=== PATIENT | male | born 1950 | race Caucasian/White ===

== ENCOUNTER → 2016-05-03 | Outpatient (CLI) | payer BC ==
[~2016-05-03] MED LIST: ACT30 PO; ACTUNK PO; ASPI81TA21 PO; CINN500C13 PO; CRS/10 PO; GLC500 PO; GLYB5TAB8 PO; LISI20TA3 PO; MCR5 PO; METF-384 PO; METF500T PO; SITA1TAB27 PO
[2016-05-03 11:18] LABS: HEMATOCRIT 40.9 % (42-52); MEAN CELL VOLUME 95.3 fL (80-100); MEAN CORPUSCULAR HGB CONC 35.7 g/dl (32-36); MEAN PLATELET VOLUME 10.5 fL (7.4-10.4); PLATELET COUNT 166 K/uL (130-400); RED BLOOD COUNT 4.29 M/uL (4.7-6.1); WHITE BLOOD COUNT 6.31 K/uL (4.8-10.8)
[2016-05-03 11:28] LABS: ALT/SGPT 32 U/L (12-78); AST/SGOT 13 U/L (15-37); BLOOD UREA NITROGEN 19 mg/dl (7-18); BUN/CREATININE RATIO 19.2 (10-20); CALCIUM 9.2 mg/dl (8.5-10.1); CARBON DIOXIDE 27 mmol/L (21-32); CHLORIDE 101 mmol/L (98-107); CREATININE 0.97 mg/dl (0.60-1.40); GLUCOSE 253 mg/dl (70-99); POTASSIUM 4.2 mmol/L (3.5-5.1); SODIUM 139 mmol/L (136-145)
[2016-05-03 11:37] LABS: ALB/GLOB RATIO 1.1 (0.9-2); ALKALINE PHOSPHATASE 55 U/L (45-117); CHOLESTEROL 144 mg/dl (0-200); CHOLESTEROL/HDL RATIO 3.2; HDL CHOLESTEROL 45 mg/dl; LDL CHOLESTEROL CALCULATED 76 mg/dl; TRIGLYCERIDES 116 mg/dl (0-150); VERY LOW DENSITY LIPOPROT CALC 23 mg/dl
[2016-05-03 14:01] LABS: ESTIMATED AVERAGE GLUCOSE 252 mg/dl; HA1C FLAG Normal (Normal)
== END | disposition home or self-care (01) ==
LOC: C.LABBC 07:36
PROVIDERS: ATTEND Internal Medicine
DX: E11.29 Type 2 diabetes mellitus with other diabetic kidney complication (principal)

== ENCOUNTER → 2016-09-01 | Outpatient (CLI) | payer BC ==
[~2016-09-01] MED LIST changes: +OXYC-57 PO
[2016-09-01 11:15] LABS: ALT/SGPT 29 U/L (12-78); AST/SGOT 13 U/L (15-37); BLOOD UREA NITROGEN 21 mg/dl (7-18); BUN/CREATININE RATIO 21.1 (10-20); CALCIUM 8.5 mg/dl (8.5-10.1); CARBON DIOXIDE 24 mmol/L (21-32); CHLORIDE 106 mmol/L (98-107); CREATININE 0.97 mg/dl (0.60-1.40); GLUCOSE 229 mg/dl (70-99); POTASSIUM 4.5 mmol/L (3.5-5.1); SODIUM 138 mmol/L (136-145)
[2016-09-01 11:23] LABS: RATIO 335.4 mcg/mg (0-30.0)
[2016-09-01 11:29] LABS: ALKALINE PHOSPHATASE 52 U/L (45-117); CHOLESTEROL 151 mg/dl (0-200); CHOLESTEROL/HDL RATIO 3.4; HDL CHOLESTEROL 44 mg/dl; LDL CHOLESTEROL CALCULATED 90 mg/dl; TRIGLYCERIDES 84 mg/dl (0-150); VERY LOW DENSITY LIPOPROT CALC 17 mg/dl
[2016-09-01 13:16] LABS: ESTIMATED AVERAGE GLUCOSE 246 mg/dl; HA1C FLAG Normal (Normal)
== END | disposition home or self-care (01) ==
LOC: C.LABBC 07:41
PROVIDERS: ATTEND Internal Medicine
DX: I10 Essential (primary) hypertension (principal); E78.00 Pure hypercholesterolemia, unspecified; R80.9 Proteinuria, unspecified; E11.65 Type 2 diabetes mellitus with hyperglycemia; D64.9 Anemia, unspecified

== ENCOUNTER → 2016-12-04 | Outpatient (CLI) | payer BC ==
[~2016-12-04] MED LIST changes: -OXYC-57 PO
[2016-12-04 17:58] LABS: BASO % 0.6 %; BASO ABS # 0.05 K/uL (0-0.2); COMPLETE YES; EOS % 2.4 %; HEMATOCRIT 41.1 % (42-52); IG% 0.4 %; LYMPH % 21.3 %; MEAN CELL VOLUME 99.3 fL (80-100); MEAN CORPUSCULAR HEMOGLOBIN 34.1 pg (25-34); MEAN CORPUSCULAR HGB CONC 34.3 g/dl (32-36); MEAN PLATELET VOLUME 10.2 fL (7.4-10.4); MONO % 7.7 %; NEUT % 67.6 %; PLATELET COUNT 189 K/uL (130-400); RED BLOOD COUNT 4.14 M/uL (4.7-6.1); URINE APPEARANCE CLEAR (CLEAR); URINE BILIRUBIN NEG (NEG); URINE COLOR YELLOW; URINE EPITHELIAL CELL AUTO 0-5 /lpf (0-5); URINE NITRITE NEG (NEG); UROBILINOGEN NEG (NEG); WHITE BLOOD COUNT 8.45 K/uL (4.8-10.8)
[2016-12-04 18:01] LABS: MANUAL MICROSCOPIC REQUIRED? NO; REVIEW REQ? NO
[2016-12-04 18:20] LABS: ALT/SGPT 29 U/L (12-78); BLOOD UREA NITROGEN 16 mg/dl (7-18); BUN/CREATININE RATIO 16.2 (10-20); CALCIUM 9.2 mg/dl (8.5-10.1); CARBON DIOXIDE 30 mmol/L (21-32); CHLORIDE 104 mmol/L (98-107); CREATININE 0.96 mg/dl (0.60-1.40); GLUCOSE 216 mg/dl (70-99); POTASSIUM 4.2 mmol/L (3.5-5.1); SODIUM 139 mmol/L (136-145)
[2016-12-04 18:23] LABS: ALKALINE PHOSPHATASE 50 U/L (45-117); AST/SGOT 14 U/L (15-37)
== END | disposition home or self-care (01) ==
LOC: C.LABBFT 11:56
PROVIDERS: ATTEND Nurse Practitioner
DX: R10.11 Right upper quadrant pain (principal)

== ENCOUNTER → 2016-12-07 | Outpatient (CLI) | payer BC ==
--- NOTE | 2016-12-07 07:36 | DIAGNOSTIC IMAGING REPORT ---
BILIARY ULTRASOUND CLINICAL HISTORY: RUQ PAIN COMPARISON STUDY: No previous studies for comparison. FINDINGS: The liver is of slightly increased echogenicity. This may indicate hepatic steatosis. No focal hepatic masses are visualized. There is no ductal dilatation. The common bile duct measures 3 mm. No gallstones are evident. Dependent echoes within the gallbladder are likely artifactual. There is no right-sided hydronephrosis. There is 18 mm right renal cyst. The pancreas appears thickened for age. No focal masses are evident. IMPRESSION: 1. No gallstones identified. No evidence of ductal dilatation 2. Increased hepatic echogenicity, nonspecific finding which may indicate hepatic steatosis 3. Possible pancreatic thickening/edema. Electronically signed by: Ron Drummond M.D. 12/07/2016 7:35 AM Dictated Date/Time: 12/07/2016 7:32 AM
== END | disposition home or self-care (01) ==
LOC: C.ULTR 06:31
PROVIDERS: ATTEND Internal Medicine
DX: R10.11 Right upper quadrant pain (principal)

== ENCOUNTER → 2016-12-14 | Outpatient (CLI) | payer BC ==
[~2016-12-14] MED LIST changes: +SINCALIDE INJ 1.8 MCG in SODIUM CHLORIDE 0.9% 100ML 100 ML IV ONE
--- NOTE | 2016-12-14 13:12 | DIAGNOSTIC IMAGING REPORT ---
NUCLEAR MEDICINE HEPATOBILIARY SCAN WITH EJECTION FRACTION ANALYSIS CLINICAL HISTORY: Right upper quadrant abdominal pain COMPARISON STUDY: Biliary ultrasound dated 12/07/2016 FINDINGS: The patient was injected with 4.8 mCi of technetium 99m Choletec. Sequential anterior imaging was performed. Hepatic excretion was unremarkable in appearance. There was normal passage of activity into small bowel. Gallbladder was first visualized on the 15 minute image. At 1 hour, the patient was administered 1.8 mcg of sincalide utilizing a 30 minute intravenous infusion. The gallbladder ejection fraction was abnormal measuring 13%. IMPRESSION: 1. No evidence of cystic duct obstruction 2. Abnormal gallbladder ejection fraction of 13% Electronically signed by: Ron Drummond M.D. 12/14/2016 1:11 PM Dictated Date/Time: 12/14/2016 1:03 PM
== END | disposition home or self-care (01) ==
LOC: C.NUCL 10:19
PROVIDERS: ATTEND Nurse Practitioner
DX: R10.11 Right upper quadrant pain (principal)

== ENCOUNTER → 2017-01-04 | Outpatient (CLI) | payer BC ==
[~2017-01-04] MED LIST changes: -ACTUNK PO; -GLC500 PO; -MCR5 PO; -SINCALIDE INJ 1.8 MCG in SODIUM CHLORIDE 0.9% 100ML 100 ML IV ONE
--- NOTE | 2017-01-04 16:06 | ECHOCARDIOGRAM REPORT ---
*NOTICE TO RECEIVING [employer] This information is strictly Confidential and protected under [place] law. [place] law prohibits you from making any further disclosure of this information unless further disclosure is expressly permitted by the written consent of the person to whom it pertains or is authorized by law. A general authorization for the release of medical or other information is not sufficient for this purpose. Hospital accepts no responsibility if the information is made available to any other person, INCLUDING THE PATIENT. Interpretation Summary * Name: BO OWUSU Study Date: 01/04/2017 12:52 PM BP: 141/63 mmHg * Patient Location: [facility] HR: 77 * : 1950 (M/d/yyyy) Gender: Male Height: 69 in * Age: 66 yrs Ethnicity: [place] Weight: 200 lb * Ordering Physician: Siobhan Collazo * Referring Physician: Siobhan Collazo * Performed By: Leigh Schuster RDCS * * Reason For Study: HEART MURMUR * BSA: 2.1 m2 * -- Conclusions -- * 1. Normal left ventricular size and systolic function. EF 65-70%. No regional wall motion abnormalities. Moderate concentric left ventricular hypertrophy. Type 1 diastolic dysfunction. * 2. Mild valvular aortic stenosis. * 3. Mild aortic regurgitation. * 4. Normal estimated right ventricular systolic pressure; 24mmHg. * 5. No prior study available for comparison. Procedure Details * A complete two-dimensional transthoracic echocardiogram was performed (2D, M-mode, Doppler and color flow Doppler). Left Ventricle * Normal left ventricular size and systolic function. EF 65-70%. No regional wall motion abnormalities. Moderate concentric left ventricular hypertrophy. Type 1 diastolic dysfunction. Right Ventricle * The right ventricle is normal in size and function. * The right ventricular systolic function is normal as assessed by tricuspid annular plane systolic excursion (TAPSE) (normal >1.5 cm). Atria * The left atrial size is normal. * Right atrial size is normal. * There is no evidence of atrial septal defect, but resolution does not allow assessment for a patent foramen ovale. Mitral Valve * The mitral valve is grossly normal. * There is no mitral valve stenosis. * Significant mitral regurgitation is absent. Tricuspid Valve * The tricuspid valve is not well visualized, but is grossly normal. * There is no tricuspid stenosis. * There is trace tricuspid regurgitation. Aortic Valve * The aortic valve is trileaflet. * Mild valvular aortic stenosis. * Mild aortic regurgitation. Pulmonic Valve * The pulmonary valve is inadequately visualized, but the Doppler data is adequate for interpretation. * There is no pulmonic valvular stenosis. * Trace pulmonic valvular regurgitation. Great Vessels * The aortic root is normal size. * Ascending aorta of normal dimension Pericardium/Pleural * There is no pericardial effusion. Great Vessels * Normal pulmonary venous flow pattern. MMode 2D Measurements and Calculations IVSd 1.5 cm IVSs 2.2 cm LVIDd 4.4 cm LVIDs 2.6 cm LVPWd 1.4 cm LVPWs 1.9 cm IVS/LVPW 1.1 FS 40.7 % EDV(Teich) 88.6 ml ESV(Teich) 25.1 ml EF(Teich) 71.7 % EDV(cubed) 86.3 ml ESV(cubed) 18.0 ml EF(cubed) 79.1 % % IVS thick 44.3 % % LVPW thick 38.3 % LV mass(C)d 249.5 grams LV mass(C)dI 120.8 grams/m\S\2 LV mass(C)s 232.1 grams LV mass(C)sI 112.4 grams/m\S\2 SV(Teich) 63.5 ml SI(Teich) 30.7 ml/m\S\2 SV(cubed) 68.3 ml SI(cubed) 33.1 ml/m\S\2 Ao root diam 3.5 cm Ao root area 9.5 cm\S\2 LA dimension 4.5 cm asc Aorta Diam 3.0 cm LA/Ao 1.3 LVOT diam 2.1 cm LVOT area 3.5 cm\S\2 LVAd ap4 28.6 cm\S\2 LVLd ap4 7.8 cm EDV(MOD-sp4) 88.7 ml EDV(sp4-el) 89.0 ml LVAs ap4 15.2 cm\S\2 LVLs ap4 6.8 cm ESV(MOD-sp4) 34.2 ml ESV(sp4-el) 29.1 ml EF(MOD-sp4) 61.5 % EF(sp4-el) 67.3 % LVAd ap2 21.5 cm\S\2 LVLd ap2 7.6 cm EDV(MOD-sp2) 50.0 ml EDV(sp2-el) 51.6 ml LVAs ap2 11.1 cm\S\2 LVLs ap2 6.1 cm ESV(MOD-sp2) 18.2 ml ESV(sp2-el) 17.2 ml EF(MOD-sp2) 63.5 % EF(sp2-el) 66.7 % LVLd %diff -3.13 % EDV(MOD-bp) 66.8 ml LVLs %diff -10.80 % ESV(MOD-bp) 26.0 ml EF(MOD-bp) 61.0 % SV(MOD-sp4) 54.5 ml SI(MOD-sp4) 26.4 ml/m\S\2 SV(MOD-sp2) 31.7 ml SI(MOD-sp2) 15.4 ml/m\S\2 SV(MOD-bp) 40.8 ml SI(MOD-bp) 19.8 ml/m\S\2 SV(sp4-el) 59.9 ml SI(sp4-el) 29.0 ml/m\S\2 SV(sp2-el) 34.4 ml SI(sp2-el) 16.6 ml/m\S\2 Doppler Measurements and Calculations MV E max janee 64.0 cm/sec MV A max janee 99.0 cm/sec MV E/A 0.65 MV dec time 0.27 sec Ao V2 max 249.8 cm/sec Ao max PG 25.0 mmHg Ao max PG (full) 20.2 mmHg Ao V2 mean 172.7 cm/sec Ao mean PG 13.1 mmHg Ao mean PG (full) 10.0 mmHg Ao V2 VTI 45.6 cm TERESO(I,A) 1.8 cm\S\2 TERESO(I,D) 1.8 cm\S\2 TERESO(V,A) 1.5 cm\S\2 TERESO(V,D) 1.5 cm\S\2 AI max janee 354.2 cm/sec AI max PG 50.2 mmHg AI dec slope 164.4 cm/sec\S\2 AI P1/2t 630.9 msec LV V1 max PG 4.7 mmHg LV V1 mean PG 3.1 mmHg LV V1 max 108.7 cm/sec LV V1 mean 84.6 cm/sec LV V1 VTI 23.2 cm SV(Ao) 432.6 ml SI(Ao) 209.4 ml/m\S\2 SV(LVOT) 80.9 ml SI(LVOT) 39.2 ml/m\S\2 TR max janee 226.7 cm/sec RVSP(TR) 23.6 mmHg RAP systole 3.0 mmHg
== END | disposition home or self-care (01) ==
LOC: C.CPL 12:13
PROVIDERS: ATTEND Physician Assistant Medical
DX: R01.1 Cardiac murmur, unspecified (principal); I51.7 Cardiomegaly

== ENCOUNTER 2017-01-28 05:18 | Day surgery (SDC) | payer BC ==
[2016-12-27 08:08] VITALS: BMI 29.0
--- NOTE | 2016-12-27 08:36 | PAT Medication Instructions ---
Service Date Dec 27, 2016. Current Home Medication List Aspirin Enteric Coated (Ecotrin Or Generic), 81 MG PO QAM Cinnamon (Cinnamon Extract), 1 CAP PO QAM Glyburide (Micronase), 10 MG PO BID Lisinopril (Prinivil), 20 MG PO QAM Metformin Hcl (Glucophage), 500 MG PO DAILY @ NOON Metformin Hcl (Glucophage), 1,000 MG PO BID Pioglitazone (Actos), 45 MG PO NOON Rosuvastatin Calcium (Crestor), 10 MG PO QPM Sitagliptin (Januvia), 100 MG PO QAM Medication Instructions For Your Scheduled Surgery - Held per surgeon's instructions: Aspirin Enteric Coated (Ecotrin Or Generic), 81 MG PO QAM Cinnamon (Cinnamon Extract), 1 CAP PO QAM - Hold the following medications 48 hours prior to surgery: Metformin Hcl (Glucophage), 500 MG PO DAILY @ NOON Metformin Hcl (Glucophage), 1,000 MG PO BID - Hold the following medications the morning of surgery: Pioglitazone (Actos), 45 MG PO NOON Sitagliptin (Januvia), 100 MG PO QAM Lisinopril (Prinivil), 20 MG PO QAM Glyburide (Micronase), 10 MG PO BID - Take the following medications as scheduled the night before surgery: Glyburide (Micronase), 10 MG PO BID Rosuvastatin Calcium (Crestor), 10 MG PO QPM Nothing to eat or drink after midnight If you have any questions please call us at [phone] or [phone] or [phone]
[~2017-01-28] VITALS: Ht 175.3 cm; Wt 90.8 kg
[2017-01-28 05:45] VITALS: BP 159/82; PULSE 86; TEMP 36.6; O2SAT 98; Ht 175.3 cm; Wt 90.8 kg
[2017-01-28] MEDS ORDERED: LACTATED RINGER'S 1000ML 1,000 ML IV SCH (06:00)
[2017-01-28] MEDS ORDERED: CEFOXITIN IV 2,000 MG in DEXTROSE 5% 50ML 50 ML IV SCH (06:00)
[2017-01-28] MEDS ORDERED: PROMETHAZINE HCL INJ 12.5 MG in SODIUM CHLORIDE 0.9% 50ML 50 ML IV PRN (06:30)
[2017-01-28] MEDS ORDERED: HYDROmorphone INJ 1 MG/ML SYR IV PRN (06:30)
[2017-01-28] MEDS ORDERED: EpHEDrine SULFATE INJ 50 MG/ML AMP IV PRN (06:30)
[2017-01-28] MEDS ORDERED: ONDANSETRON INJ 2 MG/ML 2 ML VIAL IV PRN ×2 (06:30→08:30)
[2017-01-28] MEDS ORDERED: FENTANYL CITRATE INJ 50 MCG/1 ML 2 ML VIAL IV PRN (06:30)
[2017-01-28] MEDS ORDERED: PHENYLEPHRINE 100MCG/ML 5ML SYR IV PRN (06:30)
[2017-01-28] MEDS ORDERED: ATROPINE SULFATE 0.1 MG/ML 5ML SYR IV PRN (06:30)
[2017-01-28] MEDS ORDERED: MIDAZOLAM HCL 1 MG/ML 2ML VIAL ONE (06:42)
[2017-01-28] MEDS ORDERED: PROPOFOL IV EMULSION 10 MG/ML 20 ML VIAL IV ONE (06:42)
[2017-01-28] MEDS ORDERED: DEXAMETHASONE SOD INJ 4 MG/ML VIAL ONE (06:42)
[2017-01-28] MEDS ORDERED: ONDANSETRON INJ 2 MG/ML 2 ML VIAL ONE (06:42)
[2017-01-28] MEDS ORDERED: GLYCOPYRROLATE INJ 0.2 MG/ML VIAL ONE (06:42)
[2017-01-28] MEDS ORDERED: FENTANYL CITRATE INJ 50 MCG/1 ML 2 ML VIAL ONE (06:42)
[2017-01-28] MEDS ORDERED: NEOSTIGMINE METHYLSULFATE 5 MG/5 ML SYR ONE (06:42)
[2017-01-28] MEDS ORDERED: LIDOCAINE HCL 2% 2 ML VIAL (20MG/ML) ONE (06:42)
[2017-01-28] MEDS ORDERED: BUPIVACAINE 0.5 % 5 MG/1 ML MPF 30ML VIAL ONE (06:48)
[2017-01-28] MEDS ORDERED: SODIUM CHLORIDE 0.9% PF 50 ML VIAL ONE (06:48)
--- NOTE | 2017-01-28 07:10 | History and Physical ---
History & Physical Date Jan 28, 2017. Chief Complaint biliary dyskinesia History of Present Illness 66-year-old male referred for evaluation of biliary dyskinesia. He has been having 1-2 months of chronic right upper quadrant pain. He does notice some indigestion and stomach cramping after certain meals. The pain has not been worsened after meals. He denies any nausea or vomiting. In the past he would occasionally notes some indigestion after fatty meals, but no similar symptoms to what he is experiencing now. He had a right upper quadrant ultrasound that showed no evidence of cholelithiasis. He had a HIDA scan that showed normal filling of the gallbladder with no evidence of cholecystitis, but a gallbladder ejection fraction of 13% consistent with biliary dyskinesia. He denies any worsening or replication of his symptoms during the exam. 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 He also smokes 4-5 cigarettes per day. He had a stress test 3 months ago that appeared to be negative per his report. Past Medical/Surgical History Review of Systems Complete-ROS GenSurg: YfdtvMxwvbms7Uusls Constitutional: negative. HbufcFrdeuvo7Sip AqfdeKnjsmwp4Qolfc Eyes: negative. IqrmxBrntzei8Mfm DfmdhOsfcnwd1Joibk Neurological: negative. XlixjXeecnjm2Ijw OzaxjWoafxya8Twjro Endocrine: negative. UdglpYmnvhkz4Bga RcupxNtaygcn7Oeqkc Cardiovascular: negative. ImduySzmtlss8Dal IzhjqUxvqsjl90Bqvhg Respiratory: negative. BhrdxHalnhom79Pae ZwrmuRgdzbgz82Aliln Gastrointestinal: negative. FjaasBuujuvp13Yjo GfxsdPwlkqbs91Hhfzn Integumentary: negative. UtswnSgaxlnk08Bau TqzroUscwlam98Jrsqu Musculoskeletal: negative. LjyrpBemgheq25Bld ZcjafFnoahbm4Ipxvx Hematologic/Lymphatic: negative. XvxyfJsqmvvj8Mep SlcqdXcnoduc7Mqyip ENT: negative. YyjjbOtoxmsp8Bgo LfzkhNqffina0Zuqva Psychiatric: negative. IaheaOkvqlel7Tpm EbnvlMllnfid73Fdsah Genitourinary: negative. XwrkmVwvdfxc88Voq FrgflSonokcd27Ewapr LwcykXbzyosy95Glk Pjieglip-ZPEWetVncgFBDYfolce6ss-87g0XJTPpeHepfZKNVbqcaa7dz-70p8-60f9-x953- f2008bi04p66JezzHpn Active Problems 1. Abnormal findings on diagnostic imaging of musculoskeletal system (R93.7) 2. Anemia (D64.9) 3. Biliary colic (K80.50) 4. Chest pain (R07.9) 5. Continuous right upper quadrant pain (R10.11) 6. Dermatophytosis (B35.9) 7. Diabetes mellitus type 2, uncontrolled (E11.65) 8. Diabetes mellitus with renal manifestations, uncontrolled (E11.29,E11.65) 9. Encounter for screening for malignant neoplasm of prostate (Z12.5) 10. Hypercholesterolemia (E78.00) 11. Hypertension (I10) 12. Joint pain in the shoulder/clavicle region (M25.519) 13. Lower back pain (M54.5) Left sided with radicular symptoms. 14. 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 Proteinuria (R80.9) 16. Thyroid disorder (E07.9) 17. Type 2 diabetes mellitus (E11.9) Surgical History SurgicalHistory_10_twCiteListControlStart 1. History of Complete Colonoscopy 01/2007, normal except for tics, recheck in 10 years 2. History of Rotator Cuff Repair 03/2013, laproscopic, dr dorado Family History 1. Family history of Coronary Artery Disease 2. Family history of cardiac disorder (Z82.49) 3. Family history of hypertension (Z82.49) 4. Family history of Type 2 Diabetes Mellitus 5. Family history of cardiac disorder (Z82.49) 6. Family history of hypertension (Z82.49) 7. Family history of Stroke Syndrome 8. Family history of Colon Cancer cousin on paternal side Social History SocialHistory_ Alcohol Use (History) Former smoker (Z87.891) one cigarette per day Marital History - Currently Occupation: Smokeless tobacco use (Z72.0) Allergies Coded Allergies: No Known Allergies (Unverified , 01/28/17) Home Medications Scheduled Aspirin Enteric Coated (Ecotrin Or Generic), 81 MG PO QAM Cinnamon (Cinnamon Extract), 1 CAP PO QAM Glyburide (Micronase), 10 MG PO BID Lisinopril (Prinivil), 20 MG PO QAM Metformin Hcl (Glucophage), 500 MG PO DAILY @ NOON Metformin Hcl (Glucophage), 1,000 MG PO BID Pioglitazone (Actos), 45 MG PO NOON Rosuvastatin Calcium (Crestor), 10 MG PO QPM Sitagliptin (Januvia), 100 MG PO QAM Physical Examination Skin: warm/dry, no rash Eyes: normal inspection, EOMI, sclerae normal ENT: normal ENT inspection, pharynx normal Head: normocephalic, atraumatic Neck: supple, no adenopathy, trachea midline Respiratory/Chest: lungs clear, normal breath sounds, no respiratory distress Cardiovascular: regular rate, rhythm, no edema, no murmur Abdomen / GI: normal bowel sounds, non tender, + pertinent finding (reducible umbilical hernia) Back: normal inspection Extremities: normal inspection, normal range of motion Neurologic/Psych: no motor/sensory deficits, alert, normal reflexes, oriented x 3 Diagnosis biliary dyskinesia, umbilical hernia Plan of Treatment 66-year-old male with biliary dyskinesia and likely chronic cholecystitis. He also has an umbilical hernia which we will repair during the procedure. Plan for laparoscopic cholecystectomy with possible intraoperative cholangiogram, possible umbilical hernia repair. The risks of the procedure were discussed to include but are not limited to bleeding, infection, damage to common bile duct, retained stone, bile leak, conversion to open, damage to surrounding structures , need for future more extensive surgery or procedures, failure to treat symptoms, and the risks of anesthesia. He is at increased risk for infection and wound complications as well as anesthesia risk given his smoking, and poorly controlled diabetes. We will get preoperative cardiac risk assessment by his primary care provider prior to the procedure, though it is reassuring that he had normal stress test 3 months ago per his report. The diagnosis, treatment options, details of surgery, recovery, and plan of care were discussed, all questions were answered and the patient agreed to proceed with surgery as planned.
[2017-01-28] MEDS ORDERED: ROCURONIUM BROMIDE 10 MG/ML 5 ML VIAL IV ONE (07:48)
[2017-01-28] MEDS ORDERED: KETOROLAC TROMETHAMINE 30 MG/ML VIAL ONE (08:03)
--- NOTE | 2017-01-28 08:12 | [facility] Post Operative Brief Note ---
Immediate Operative Summary Operative Date Jan 28, 2017. Pre-Operative Diagnosis biliary dyskinesia, chronic cholecystitis Post-Operative Diagnosis biliary dyskinesia, chronic cholecystitis Procedure(s) Performed Laparoscopic Cholecystectomy, Umbilical Hernia Repair Surgeon Dr. Schuster Engineer Of System Development Surgeon(s) LUCINA Barrett PA-C Estimated Blood Loss 3 cc Findings Window of safety obtained, cystic duct and artery doubly clipped and divided. Good hemostasis. Umbilical hernia defect repaired primarily with interrupted 0 Nurolon sutures. Specimens A: Gall bladder and contents Drains none Anesthesia GETA Complication(s) None Disposition Recovery Room / PACU
[2017-01-28] MEDS ORDERED: OXYC-57 PO (08:15)
[2017-01-28] MEDS ORDERED: SODIUM CHLORIDE 0.9% 1000ML 1,000 ML IV SCH (08:20)
--- NOTE | 2017-01-28 08:20 | [facility] Operative Report ---
Operative Report Operative Date Jan 28, 2017. Pre-Operative Diagnosis biliary dyskinesia, chronic cholecystitis Post-Operative Diagnosis biliary dyskinesia, reducible umbilical hernia Procedure(s) Performed Laparoscopic cholecystectomy, umbilical hernia repair, Surgeon Dr. Schuster Gum Cook Surgeon(s) LUCINA Barrett PA-C Estimated Blood Loss 3 cc Findings Window of safety obtained, cystic duct and artery doubly clipped and divided. Good hemostasis. Umbilical hernia defect repaired primarily with interrupted 0 Nurolon sutures. Specimens A: Gall bladder and contents Drains none Anesthesia GETA Complication(s) None Disposition Recovery Room / PACU Indications 66-year-old male with symptomatically biliary dyskinesia and incidental umbilical hernia, plan for laps, cholecystectomy with possible intraoperative cholangiogram and possible umbilical hernia repair. The risks of the procedure were discussed, all questions were answered, and the patient agreed to proceed with surgery as planned. Description of Procedure The patient was properly identified, consented, and taken to the operating room where he was placed in the supine position. General endotracheal anesthesia was induced. SCDs and a safety belt were placed. Preoperative antibiotics were administered. The patient's abdomen was prepped and draped in the standard sterile fashion. A surgical timeout was performed and all parties were in agreement that this was the correct patient and procedure to be performed and we continued as planned. A curvilinear, infraumbilical incision was made with electrocautery and deepened down to the fascia with blunt dissection. The umbilical stalk was circumferentially dissected with a Tonie, and divided below the level of the skin. A 1 cm fascial defect was encountered. The hernia was reduced. The fascia anteriorly and posteriorly was cleared of investing tissue for several centimeters. The umbilical hernia defect was then used to access the abdomen. Stay sutures of 0 Vicryl placed and the Looney trocar was inserted. The abdomen was insufflated with carbon dioxide which the patient tolerated without incident. The laparoscope was inserted and no damage from initial trocar placement was noted, no gross abnormalities were noted within the 4 quadrants of the abdomen. 5 mm ports were then placed in the subxiphoid position in the midline and 2 in the right subcostal position. The patient was placed in reverse Trendelenburg position and rotated towards the left. The dome of the gallbladder was retracted towards the left upper quadrant and the infundibulum was retracted toward the right lower quadrant revealing Calot' s triangle. Peritoneal attachments were taken down with electrocautery and blunt dissection. The cystic duct and artery were circumferentially dissected. A window of safety was obtained showing the cystic duct entering the gallbladder with no aberrant structures noted. The cystic duct and artery were doubly clipped and divided. The gallbladder was then lifted off the gallbladder fossa with electrocautery. The gallbladder was placed in an Endo Catch bag and removed through the umbilical port site. The right upper quadrant was irrigated and hemostasis was found to be good. 5 mm trochars were removed under direct visualization and the abdomen was allowed to collapse. The hernia defect was closed primarily with interrupted 0 Nurolon sutures. The wound was irrigated and hemostasis confirmed. The umbilicus was tacked down to the fascia with 3-0 Vicryl sutures. Local anesthetic in the form of 0.5% Marcaine was injected in the fascia and along the skin incision. The skin of all ports was closed with 4-0 Monocryl subcuticular sutures. Dermabond was placed over the wounds. The patient was extubated in the operating room and taken to the PACU where he recovered without apparent incident. All sponge, instrument and needle counts were correct at the conclusion of the procedure. The patient tolerated the procedure well. I attest to the content of the Intraoperative Record and any orders documented therein. Any exceptions are noted below.
--- NOTE | 2017-01-28 08:20 | Discharge Instructions ---
Discharge Instructions Date of Service Jan 28, 2017. Visit Reason for Visit: Chronic Cholecystitis, Diabetes Mellitus Non-Insul Discharge Discharge Diagnosis / Problem: Chronic Cholecystitis, Diabetes Mellitus Non- Insulin Discharge Goals Goal(s): Decrease discomfort, Improve function Activity Recommendations Activity Limitations: as noted below Lifting Limitations: no more than 10 pounds Exercise/Sports Limitations: until after follow-up appointment Shower/Bathe: tomorrow Driving or Machine Use: resume 1 day after discharge (Do not drive while using narcotic pain medication) No heavy lifting or strenuous exercise until after follow-up appointment Anesthesia . Post Anesthesia Instructions: If you have had General Anesthesia or IV Sedation: * Do not drive today. * Resume driving when surgeon permits. * Do not make important decisions or sign legal documents today. * Call surgeon for: 1. Temperature elevations greater than 101 degrees F. 2. Uncontrollable pain. 3. Excessive bleeding. 4. Persistent nausea and vomiting. 5. Medication intolerance (nausea, vomiting or rash). * For nausea and vomiting use only clear liquids such as: tea, soda, bouillon until nausea subsides, then gradually increase diet as tolerated. * If you have any concerns or questions, call your surgeon's office. If physician is unavailable and it is an emergency, call 911 or go to the nearest emergency room. . Instructions / Follow-Up Instructions / Follow-Up Please follow-up with Dr. Schuster in the office in 2 weeks. Please call to schedule an appointment if you have not done so already. [facility]. [address] [place] [address]. Diet Recommendations Recommended Home Diet: resume previous diet (Gradually increase as tolerated.) Procedures Procedures Performed: Laparoscopic Cholecystectomy, Umbilical Hernia Repair Pending Studies Studies pending at discharge: yes List of pending studies: Pathology Medical Emergencies . Who to Call and When: Medical Emergencies: If at any time you feel your situation is an emergency, please call 911 immediately. . Non-Emergent Contact Non-Emergency issues call your: Primary Care Provider, Surgeon Call Non-Emergent contact if: you have a fever, temperature is above 101.5, your pain is not controlled, your pain is worsening, wound has increased drainage, wound has increased redness . . "Provider Documentation" section prepared by Ag Thornton. . [place] Drug Monitoring Program Search Results: patient reviewed within database (Patient identified, No prescriptions identified.)
[2017-01-28] MEDS ORDERED: INSULIN HUMAN REGULAR PER UNIT 6 UNITS in SYRINGE 0 ML SC STA (08:26)
[2017-01-28] MEDS ORDERED: NovoLIN-R INSULIN PER UNIT CHARGE ONE (08:27)
[2017-01-28] MEDS ORDERED: OXYCODONE/ACETAMINOPHEN 5-325 TAB PO PRN ×2 (08:30)
--- NOTE | 2017-01-28 08:59 | Anesthesiology Progress Note ---
Anesthesia Post Op Note Date & Time Jan 28, 2017 at 08:58 Vital Signs Pain Intensity: 0 Vital Signs Past 12 Hours Date Time Temp Pulse Resp B/P (MAP) Pulse Ox O2 Delivery O2 Flow Rate FiO2 01/28/17 08:45 61 12 153/65 94 Room Air 01/28/17 08:35 60 12 171/79 95 Room Air 01/28/17 08:25 66 13 177/87 100 Oxymask 10 01/28/17 08:18 36.2 70 16 192/95 99 Oxymask 10 01/28/17 05:45 36.6 86 20 159/82 (107) 98 Room Air Notes Mental Status: alert / awake / arousable, participated in evaluation Pt Amnestic to Procedure: Yes Nausea / Vomiting: adequately controlled Pain: adequately controlled Airway Patency, RR, SpO2: stable & adequate BP & HR: stable & adequate Hydration State: stable & adequate Anesthetic Complications: no major complications apparent Doing well. VSS. BG came down after regular insulin. Ready for d/c
[2017-01-28 09:05] VITALS: BP 176/83; PULSE 64; TEMP 36.7; O2SAT 93
[2017-01-28 09:35] VITALS: BP 157/74; PULSE 72; TEMP 36.4; O2SAT 96
--- NOTE | 2017-01-29 14:23 | Anesthesiology Progress Note ---
Anesthesia Post Op Note Date & Time Jan 29, 2017 at 12:22 Notes Mental Status: alert / awake / arousable, participated in evaluation Pt Amnestic to Procedure: Yes Nausea / Vomiting: adequately controlled Pain: adequately controlled Airway Patency, RR, SpO2: stable & adequate BP & HR: stable & adequate Hydration State: stable & adequate Anesthetic Complications: no major complications apparent
== END 2017-01-28 09:48 | disposition home or self-care (01) ==
LOC: C.ACU 05:18
PROVIDERS: ATTEND Surgery
DX: K82.8 Other specified diseases of gallbladder (principal); K42.9 Umbilical hernia without obstruction or gangrene; D64.9 Anemia, unspecified; E11.65 Type 2 diabetes mellitus with hyperglycemia; E11.29 Type 2 diabetes mellitus with other diabetic kidney complication; I10 Essential (primary) hypertension; E78.00 Pure hypercholesterolemia, unspecified; E07.9 Disorder of thyroid, unspecified; N52.9 Male erectile dysfunction, unspecified; Z87.891 Personal history of nicotine dependence; Z79.82 Long term (current) use of aspirin; Z79.84 Long term (current) use of oral hypoglycemic drugs; Z79.899 Other long term (current) drug therapy

== ENCOUNTER → 2017-02-04 | Outpatient (CLI) | payer BC ==
[2017-02-04 10:53] LABS: ALT/SGPT 31 U/L (12-78); AST/SGOT 16 U/L (15-37); BLOOD UREA NITROGEN 24 mg/dl (7-18); BUN/CREATININE RATIO 20.8 (10-20); CALCIUM 9.2 mg/dl (8.5-10.1); CARBON DIOXIDE 27 mmol/L (21-32); CHLORIDE 102 mmol/L (98-107); CHOLESTEROL 129 mg/dl (0-200); CREATININE 1.17 mg/dl (0.60-1.40); GLUCOSE 185 mg/dl (70-99); POTASSIUM 4.7 mmol/L (3.5-5.1); SODIUM 136 mmol/L (136-145); TRIGLYCERIDES 88 mg/dl (0-150); VERY LOW DENSITY LIPOPROT CALC 18 mg/dl
[2017-02-04 11:03] LABS: ALKALINE PHOSPHATASE 62 U/L (45-117); CHOLESTEROL/HDL RATIO 2.9; HDL CHOLESTEROL 45 mg/dl; LDL CHOLESTEROL CALCULATED 66 mg/dl
[2017-02-04 11:15] LABS: ESTIMATED AVERAGE GLUCOSE 214 mg/dl; HA1C FLAG Normal (Normal)
== END | disposition home or self-care (01) ==
LOC: C.LABBC 07:12
PROVIDERS: ATTEND Nurse Practitioner
DX: E11.29 Type 2 diabetes mellitus with other diabetic kidney complication (principal); E07.9 Disorder of thyroid, unspecified

== ENCOUNTER → 2017-06-17 | Outpatient (CLI) | payer BC ==
[2017-06-17 11:31] LABS: ALT/SGPT 30 U/L (12-78); AST/SGOT 16 U/L (15-37); BLOOD UREA NITROGEN 20 mg/dl (7-18); CALCIUM 9.5 mg/dl (8.5-10.1); CARBON DIOXIDE 27 mmol/L (21-32); CHOLESTEROL 167 mg/dl (0-200); CREATININE 1.02 mg/dl (0.60-1.40); GLUCOSE 184 mg/dl (70-99); POTASSIUM 4.5 mmol/L (3.5-5.1); SODIUM 135 mmol/L (136-145); TOTAL PROTEIN 7.8 gm/dl (6.4-8.2)
[2017-06-17 11:39] LABS: ALKALINE PHOSPHATASE 53 U/L (45-117); LDL CHOLESTEROL CALCULATED 97 mg/dl
[2017-06-17 12:01] LABS: HEMOGLOBIN A1C 9.3 % (4.5-5.6)
== END | disposition home or self-care (01) ==
LOC: C.LABBC 07:32
PROVIDERS: ATTEND Nurse Practitioner
DX: E11.29 Type 2 diabetes mellitus with other diabetic kidney complication (principal); E78.00 Pure hypercholesterolemia, unspecified; E07.9 Disorder of thyroid, unspecified

== ENCOUNTER → 2017-11-04 | Outpatient (CLI) | payer BC ==
[~2017-11-04] MED LIST changes: +ASPI-319 PO; -ASPI81TA21 PO
[2017-11-04 11:29] LABS: ALBUMIN 3.9 gm/dl (3.4-5.0); ALKALINE PHOSPHATASE 54 U/L (45-117); ALT/SGPT 31 U/L (12-78); AST/SGOT 18 U/L (15-37); BLOOD UREA NITROGEN 21 mg/dl (7-18); CALCIUM 8.7 mg/dl (8.5-10.1); CARBON DIOXIDE 25 mmol/L (21-32); CHOLESTEROL 130 mg/dl (0-200); GLUCOSE 177 mg/dl (70-99); LDL CHOLESTEROL CALCULATED 66 mg/dl; POTASSIUM 4.4 mmol/L (3.5-5.1); SODIUM 136 mmol/L (136-145); TOTAL PROTEIN 7.6 gm/dl (6.4-8.2)
[2017-11-04 11:36] LABS: CREATININE RANDOM URINE 45.9 mg/dl
[2017-11-04 11:57] LABS: HEMOGLOBIN A1C 7.2 % (4.5-5.6)
[2017-11-04 13:20] LABS: BASO % 1.3 %; BASO ABS # 0.09 K/uL (0-0.2); EOS % 4.4 %; HEMOGLOBIN 13.8 g/dL (14.0-18.0); IG# 0.02 K/uL (0.00-0.02); LYMPH % 21.6 %; LYMPH ABS # 1.46 K/uL (1.2-3.4); MEAN CELL VOLUME 98.5 fL (80-100); MEAN CORPUSCULAR HGB CONC 34.5 g/dl (32-36); MEAN PLATELET VOLUME 10.3 fL (7.4-10.4); MONO % 9.9 %; MONO ABS # 0.67 K/uL (0.11-0.59); NEUT % 62.5 %; NEUT ABS # 4.22 K/uL (1.4-6.5); PLATELET COUNT 180 K/uL (130-400); RED CELL DISTRIBUTION WIDTH CV 13.3 % (11.5-14.5); RED CELL DISTRIBUTION WIDTH SD 47.8 fL (36.4-46.3); WHITE BLOOD COUNT 6.76 K/uL (4.8-10.8)
== END | disposition home or self-care (01) ==
LOC: C.LABBC 08:04
PROVIDERS: ATTEND Internal Medicine
DX: E11.29 Type 2 diabetes mellitus with other diabetic kidney complication (principal); Z12.5 Encounter for screening for malignant neoplasm of prostate

== ENCOUNTER 2023-04-23 18:28 | Inpatient (IN) ==
--- NOTE | 2023-04-23 18:43 | ED Triage Note ---
Date of Service April 23, 2023 Provider in Triage Author: Arabella Mccloud History of Present Illness This patient was briefly evaluated while in triage. An abbreviated physical exam was performed. This patient is a 72-year-old Male who presents to the ED for evaluation of infection. He is concerned he has cellulitis to the right foot. Had an infection after [place] and was treated with antibiotics, but the symptoms have returned. Started on antibiotics again last week. Had blood work yesterday that looked worse and he was advised to come to the ER by his PCP. PCP also worried about an arterial or venous issue causing poor healing or a blood clot. Physical Exam GENERAL: Non-toxic and in no acute distress. HEENT: Pupils equal. No obvious scleral icterus. HEART: Regular rate and rhythm. LUNGS: Clear to auscultation. No accessory muscle use. NEURO: Alert and oriented. MUSCULOSKELETAL: The patient has erythema and edema to the right foot with some areas of necrosis versus eschar what appears to be diabetic ulceration. The patient has decreased pulses on the right lower extremity and some coolness to touch compared to the left. Initial orders for labs and / or imaging were placed and patient was placed in the waiting area until a bed is available. Please see further documentation for the full ED course. MDM / Impression Impression Impression: Arterial occlusion, Cellulitis of foot, Diabetes
[2023-04-23] MEDS ORDERED: PIPERACILLIN/TAZOBACTAM 4.5 GM/100 ML BAG IV ONE (18:46)
[2023-04-23] MEDS ORDERED: SODIUM CHLORIDE 0.9% 500 ML IV ONE (18:46)
[2023-04-23 20:41] LABS: Basophils # (auto) 0.09 K/uL (0.00-0.20); Basophils % (auto) 0.9 %; Eosinophils # (auto) 0.36 K/uL (0.00-0.50); Eosinophils % (auto) 3.5 %; Hematocrit (blood only) 38.8 % (42.0-52.0); Hemoglobin 13.2 g/dl (14.0-18.0); Immature Granulocytes # (auto) 0.02 K/uL (0.01-0.20); Immature Granulocytes % (auto) 0.2 %; Lymphocytes # (auto) 1.79 K/uL (1.20-3.40); Lymphocytes % (auto) 17.4 %; Mean Corpuscular Volume 93.9 fL (80.0-100.0); Mean Platelet Volume 10.2 fL (9.4-12.4); Monocytes % (auto) 7.8 %; Neutrophils % (auto) 70.2 %; Platelet Count 187 K/uL (130-400); RDW Coefficient of Variation 12.8 % (11.5-14.5); RDW Standard Deviation 44.5 fL (36.4-46.3); Red Blood Count 4.13 M/uL (4.70-6.10); White Blood Count 10.26 K/ul (4.8-10.8)
[2023-04-23 20:43] LABS: Appearance Urine Clear (Clear); Bacteria Urine Automated Negative (Negative); Bilirubin Urine Negative (Negative); Blood Urine Negative (Negative); Cast Urine Automated 0 /lpf (0-5); Color Urine Yellow; Epithelial Cell Urine Auto 0-5 /lpf (0-5); Glucose Urine UA 3+ (Negative); Ketones Urine Negative (Negative); Leukocyte Esterase Urine Negative (Negative); Nitrite Urine Negative (Negative); Protein Urine 2+ (Negative); RBC Urine Automated 0-4 /hpf (0-4); Specific Gravity Urine 1.024 (1.000-1.030); Urobilinogen Urine Negative (Negative); WBC Urine Automated 0 /hpf (0-5)
[2023-04-23 21:07] LABS: Partial Thromboplastin Ratio 1.1; Partial Thromboplastin Time 30 Seconds (21-31); Prothrombin Time 10.7 Seconds (9.0-12.0)
--- NOTE | 2023-04-23 21:43 | Ultrasound Report ---
Exam(s): US VENOUS RIGHT LOWER EXTREMITY EXAM: US Duplex Right Lower Extremity Veins CLINICAL HISTORY: Redness, swelling right foot, Eval DVT. TECHNIQUE: Real-time duplex ultrasound scan of the right lower extremity veins integrating B-mode two-dimensional vascular structure, Doppler spectral analysis, color flow Doppler imaging and compression. COMPARISON: No relevant prior studies available. FINDINGS: Deep veins: No DVT in the visualized right common femoral, femoral, proximal deep femoral or popliteal veins. The veins demonstrate normal color flow, are normally compressible, with normal phasic flow and/or augmentation response. The interrogated calf veins are patent. Superficial veins: Incidental hyperechoic calcific densities in the right short saphenous vein involving the right popliteal fossa. The saphenofemoral junction is patent. Soft tissues: No acute findings. No popliteal cyst. IMPRESSION: No evidence for deep vein thrombosis involving the right lower extremity. Electronically signed by: Siddhartha Decker MD 04/23/23 21:42 PM
--- NOTE | 2023-04-23 21:56 | Ultrasound Report ---
Exam(s): US ARTERIAL RIGHT LOWER EXTREMITY EXAM: US Duplex Right Lower Extremity Arteries CLINICAL HISTORY: Poor healing, necrosis, infection. TECHNIQUE: Real-time duplex ultrasound scan of the right lower extremity arteries integrating B-mode two-dimensional vascular structure, Doppler spectral analysis and color flow Doppler imaging. COMPARISON: No relevant prior studies available. FINDINGS: Right common femoral artery: Atherosclerotic calcification noted involving the right common femoral artery. Multiphasic waveforms are identified with peak systolic velocities between 177 and 206 cm/s. Right deep femoral: Atherosclerotic calcification with mild narrowing of the proximal right profunda femoral artery with multiphasic waveforms in a peak systolic velocity of 166 cm/s. Right superficial femoral artery: Atherosclerotic calcification involving the right superficial femoral artery with biphasic to monophasic waveforms distally with peak systolic velocities between 175 cm/s and 56 cm/s at the mid superficial femoral artery. There is prominent atherosclerotic disease involving the distal right superficial femoral artery with focal elevated waveforms and spectral broadening with peak systolic velocity of 107 cm/s and monophasic waveforms. Beyond this point, the peak systolic velocity of the distal femoral artery is 51 cm/s with monophasic waveforms. Right popliteal artery: The right popliteal artery demonstrates peak systolic velocity of 133 cm/s with spectral broadening and monophasic waveforms. Atherosclerotic disease noted. The distal popliteal artery is occluded. Right calf/foot arteries: The proximal right posterior tibial artery is occluded. There is reconstitution of the distal right posterior tibial artery is monophasic waveforms in a peak systolic velocity of 32 cm/s. The peroneal artery is patent with monophasic waveforms in a peak systolic velocity between 18 and 19 cm/s. The anterior tibial artery is patent proximally with monophasic waveforms in a peak systolic velocity of 48 cm/s. The mid anterior tibial artery is occluded. There is distal reconstitution with the dorsalis pedis artery demonstrating a peak stalk velocity of only 14 cm/s an monophasic waveforms. Soft tissues: Unremarkable. IMPRESSION: 1. Extensive at this chronic calcification of the right lower extremity. The right superficial femoral artery is patent with biphasic waveforms proximally. There is prominent atherosclerotic disease involving the distal right superficial femoral artery with focal elevated waveforms and spectral broadening, consistent with a hemodynamic stenosis of 50-69%. Distal to this stenosis, there is monophasic waveforms. 2. Extensive atherosclerotic disease involving the right popliteal artery. The distal right popliteal artery is occluded. The occlusion extends to the proximal right posterior tibial artery. 3. The right mid anterior tibial artery is occluded. There is faint distal reconstitution of the right dorsalis pedis artery with monophasic waveforms. The right peroneal artery demonstrates monophasic waveforms. Electronically signed by: Siddhartha Decker MD 04/23/23 21:55 PM
[2023-04-23 22:02] LABS: Albumin Level 4.2 gm/dl (3.4-5.0); Bilirubin,Total 0.4 mg/dl (0.2-1.0); Calcium 9.4 mg/dl (8.6-10.3); Magnesium 1.9 mg/dl (1.7-2.4); Potassium 5.2 mmol/L (3.5-5.1)
[2023-04-23 22:22] LABS: Albumin Globulin Ratio 1.2 (0.9-2); BUN Creatinine Ratio 34.2 (10-20); Creatinine Clr Calc Pharmacy 38.8 ml/min; Est GFR (African American) 49.1 ml/min; Est GFR (Non-African American) 42.4 ml/min; Globulin 3.6 gm/dl (2.5-4.0); Total Protein 7.8 gm/dl (6.0-8.3)
--- NOTE | 2023-04-23 22:37 | Emergency Department Note ---
History of Present Illness General Chief complaint: Infection Stated complaint: CELLULITIS IN RT FOOT Time Seen by Provider: 04/23/23 22:08 History of Present Illness Maximum Pain Intensity: 4 This is a 72-year-old male presenting to the emergency department for evaluation of developing redness and pain to his right foot. Patient has had symptoms waxing and waning over the past 6 weeks. Patient went to his family doctor and was diagnosed with cellulitis. Patient does not have significant fevers or chills. He is a diabetic with neuropathy and coronary artery disease. The patient had a fall after , roughly 6 or 7 weeks ago that resulted with head injury and intracranial bleeding. By history he was admitted to [facility] and ultimately discharged home. In this fall the patient believes that he had injured his right foot and developed a wound that is the cause of his infection. Patient was referred to the ER from his family doctor's office for concern of arterial or venous issue causing delayed healing. Patient has pain with ambulation and rates his discomfort a 4/10. Home Medications Medication Instructions Recorded Confirmed Type blood-glucose meter (OneTouch #1 ea 01/05/22 04/19/23 Rx Ultra2 Meter) blood sugar diagnostic #100 ea 02/09/22 04/19/23 Rx rosuvastatin 10 mg tablet 10 mg PO HS #90 tabs 09/10/22 04/23/23 Rx metoprolol tartrate 25 mg tablet 25 mg PO BID #180 tabs 10/04/22 04/23/23 Rx blood sugar diagnostic (OneTouch #200 ea 10/25/22 04/19/23 Rx Ultra Test strips) pen needle, diabetic 32 gauge x #200 ea 11/19/22 04/19/23 Rx 1/4" (Comfort EZ Pen [place]) lisinopril 20 mg tablet 20 mg PO BID #180 tabs 11/28/22 04/23/23 Rx glipizide 10 mg tablet 5 mg (1/2 x 10 mg) PO DAILY #180 01/29/23 04/23/23 Rx tabs hydrochlorothiazide 12.5 mg tablet 12.5 mg PO DAILY #90 tabs 01/29/23 04/23/23 Rx dapagliflozin propanediol 10 mg 10 mg PO DAILY #90 tabs 01/31/23 04/23/23 Rx tablet (Farxiga) acetaminophen 325 mg tablet 975 mg PO TID 02/26/23 04/23/23 History insulin glargine 100 unit/mL (3 11 - 16 unit (0.11 - 0.16 mL) 03/06/23 04/23/23 Rx mL) subcutaneous pen (Lantus subcut BID #30 mL Solostar U-100 Insulin) amoxicillin 875 mg-potassium 1 tab PO BID #20 tabs 04/19/23 04/23/23 Rx clavulanate 125 mg tablet doxycycline hyclate 100 mg capsule 100 mg PO BID #20 caps 04/19/23 04/23/23 Rx amoxicillin 500 mg tablet 2,000 mg PO DIRECTED PRN PRIOR 04/23/23 04/23/23 History TO DENTAL PROCEDURES Allergies Allergy/AdvReac Type Severity Reaction Status Date / Time No Known Allergies Allergy Unknown Verified 04/23/23 22:33 Past Med/Surg History Medical History (Updated 04/24/23 @ 00:35 by TESSIE Daniels) Coronary artery disease Essential tremor Aortic stenosis Aortic insufficiency History of COVID-19 05/2020; asymptomatic Diabetes mellitus, type 2 NIDDM Hyperlipidemia Hypertension Surgical History History of right cataract surgery History of cardiac catheterization 12/2019 [place] - abn stress test ---> CABG (sees Dr. Guevara) S/[facility] performed at time of 4 vessel CABG. 25 mm Medtronic pericardial bioprosthesis S/P CABG x 4 (05/13/20[facility], (ESTRADA to LAD, aorta via SVG to diagonal, OM1 and PDA). Also had AVR performed with 25 mm Medtronic pericardial bioprosthetic valve S/P carotid endarterectomy (05/10/20) right side, Dr Ac, [facility] History of colonoscopy (02/19/18) 12/2017 repeat 10 yrs Status post right foot surgery HX repair of right great toe amputation History of lumbar spinal fusion rods in place History of repair of right rotator cuff Hx of vasectomy History of umbilical hernia repair WITH GALLBLADDER SURGERY History of cholecystectomy History of tooth extraction wisdom teeth Family History (Updated 07/23/22 @ 08:58 by YVES Marquez) Mother Family history of diabetes mellitus Diabetes Myocardial infarction Father Prostate cancer Stroke Grandmother (Maternal) Diabetes Uncle Myocardial infarction Denies family history of Ovarian cancer Breast cancer Lung cancer Colorectal cancer Social History (Updated 07/23/22 @ 08:57 by YVES Marquez) Smoking Status: Never smoker Cigarettes Per Day: COUPLE A DAY IN THE MORNING WITH COFFEE/ADVISED NPO; Second Hand Exposure: Yes (); Do You Dip or Chew Tobacco: Yes; Hx Alcohol Use: Yes Alcohol type: beer Alcohol Intake Frequency: 2-4 x/Month Hx Substance Use: No Preferred Language: Ghanaian Communication Ability: Effective Visual Impairment: Limited Hearing Ability: Normal Oiler And Greaser Required: No Beliefs That Will Affect Care: None marital status: Current Living Situation: Spouse current occupational status: employed and retired current occupation: retired- [employer] How many Children do You have: 4 Feels Safe at Home: Yes Childhood Exposure to Second-Hand Smoke: No caffeine: Yes Dental Care, Regularly: Yes Physical Activity Frequency: Daily Physical Activity Frequency Comment: hernandez Seatbelt Use: never Sunscreen Use: No Assistive Devices: Glasses Review of Systems A total of 10 systems reviewed and were otherwise negative Physical Exam Vital Signs Vital Signs - 24 hr 04/23/23 18:41 04/23/23 20:02 04/23/23 22:26 Temperature 35.9 C L Temperature Source Temporal Artery Scan Pulse Rate 95 H Pulse Rate [Finger] 63 62 Respiratory Rate 15 16 20 Respiratory Depth Normal Blood Pressure 157/77 H Blood Pressure [Left Arm] 164/79 H 168/92 H Blood Pressure Mean 103 Blood Pressure Mean [Left Arm] 107 117 Blood Pressure Position [Left Arm] Sitting Pulse Oximetry 99 95 99 Oxygen Delivery Method Room Air Room Air Room Air Sepsis Recent Fever Within 48 Hours No Sepsis New/Unexplained Change in Mental Status No Sepsis Action Taken by Nursing No Action Required VITALS: Vitals are noted on the nurse's note and reviewed by myself. Vital signs stable. GENERAL: Elderly white male who appears in no acute distress HEAD: Normocephalic atraumatic. NECK: Supple without nuchal rigidity. No lymphadenopathy. No thyromegaly. Cervical spine is nontender. HEART: Regular rate and rhythm without murmurs gallops or rubs. LUNGS: Clear to auscultation bilaterally without wheezes, rales or rhonchi. No retractions or accessory muscle use. MUSCULOSKELETAL: There is a roughly 1.5 cm circular scab to the lateral right foot. The right foot is with some mild redness in this distribution with no obvious purulence. Pulses are not detected on palpation or with Doppler. Foot itself does appear to be perfusing however Course Administered Medications Daptomycin 400 mg/ Syringe 8 mls @ 4 mls/min IV Q24H [facility]; Protocol Stop: 04/25/23 23:14 Last Admin: 04/23/23 23:38 Dose: 4 mls/min Documented By: AMBREEN Discontinued Medications Sodium Chloride (Nss) 500 mls @ 999 mls/hr IV .Q31M ONE Stop: 04/23/23 19:16 Last Infusion: 04/23/23 22:23 Dose: Infused Documented By: Admin: 04/23/23 20:13 Dose: 999 mls/hr Documented By: DAVIS Piperacillin Sod/Tazobactam Sod (Zosyn) 4.5 gm in 100 mls @ 200 mls/hr IV NOW ONE Stop: 04/23/23 19:15 Last Infusion: 04/23/23 22:23 Dose: Infused Documented By: Admin: 04/23/23 20:14 Dose: 200 mls/hr Documented By: DAVIS Medical Decision Making Differential Diagnosis Differential diagnosis includes: Etiologies such as arterial occlusion, cellulitis, abscess, osteomyelitis, MRSA infection, DVT, necrotizing fasciitis, dermatitis, drug eruption, as well as others were entertained Laboratory Data 04/23/23 20:15 04/23/23 20:15 Lab Results 04/23/23 04/23/23 Range/Units 20:15 20:20 WBC 10.26 (4.8-10.8) K/ul RBC 4.13 L (4.70-6.10) M/uL Hgb 13.2 L (14.0-18.0) g/dl Hct 38.8 L (42.0-52.0) % MCV 93.9 (80.0-100.0) fL MCH 32.0 (25.0-34.0) pg MCHC 34.0 (32.0-36.0) g/dL RDW Std Deviation 44.5 (36.4-46.3) fL RDW Coeff of Shahriar 12.8 (11.5-14.5) % Plt Count 187 (130-400) K/uL MPV 10.2 (9.4-12.4) fL Immature Gran % (Auto) 0.2 % Neut % (Auto) 70.2 % Lymph % (Auto) 17.4 % Cannon % (Auto) 7.8 % Eos % (Auto) 3.5 % Baso % (Auto) 0.9 % Neut # (Auto) 7.20 H (1.40-6.50) K/uL Lymph # (Auto) 1.79 (1.20-3.40) K/uL Cannon # (Auto) 0.80 H (0.11-0.59) K/uL Eos # (Auto) 0.36 (0.00-0.50) K/uL Baso # (Auto) 0.09 (0.00-0.20) K/uL Immature Gran # (Auto) 0.02 (0.01-0.20) K/uL PT 10.7 (9.0-12.0) Seconds INR 1.0 (0.9-1.1) APTT 30 (21-31) Seconds PTT Ratio 1.1 Sodium 137 (136-145) mmol/L Potassium 5.2 H (3.5-5.1) mmol/L Chloride 104 (98-107) mmol/L Carbon Dioxide 25 (21-32) mmol/L Anion Gap 8 (3-11) BUN 55 H (6-23) mg/dl Creatinine 1.61 H (0.6-1.4) mg/dl Est Cr Clr Drug Dosing 38.8 ml/min Est GFR ( Amer) 49.1 ml/min Est GFR (Non-Af Amer) 42.4 ml/min BUN/Creatinine Ratio 34.2 H (10-20) Glucose 335 H* (70-99(Fasting)) mg/dl Lactate 1.1 (0.4-2.0) mmol/L Calcium 9.4 (8.6-10.3) mg/dl Magnesium 1.9 (1.7-2.4) mg/dl Total Bilirubin 0.4 (0.2-1.0) mg/dl AST 21 (13-39) U/L ALT 24 (7-52) U/L Alkaline Phosphatase 61 (34-104) U/L Total Protein 7.8 (6.0-8.3) gm/dl Albumin 4.2 (3.4-5.0) gm/dl Globulin 3.6 (2.5-4.0) gm/dl Albumin/Globulin Ratio 1.2 (0.9-2) Procalcitonin < 0.05 (0-0.5) ng/ml Urine Color Yellow Urine Appearance Clear (Clear) Urine pH 5.0 (4.5-7.5) Ur Specific [place] 1.024 (1.000-1.030) Urine Protein 2+ H (Negative) Urine Glucose (UA) 3+ H (Negative) Urine Ketones Negative (Negative) Urine Blood Negative (Negative) Urine Nitrite Negative (Negative) Urine Bilirubin Negative (Negative) Urine Urobilinogen Negative (Negative) Ur Leukocyte Esterase Negative (Negative) Urine WBC (Auto) 0 (0-5) /hpf Urine RBC (Auto) 0-4 (0-4) /hpf U Hyaline Cast (Auto) 0 (0-5) /lpf U Epithel Cells (Auto) 0-5 (0-5) /lpf Urine Bacteria (Auto) Negative (Negative) Imaging Data Radiologist's Impression: Duplex Scan Lower Extremity Artery 04/23/23 18:43 Exam(s): US ARTERIAL RIGHT LOWER EXTREMITY EXAM: US Duplex Right Lower Extremity Arteries CLINICAL HISTORY: Poor healing, necrosis, infection. TECHNIQUE: Real-time duplex ultrasound scan of the right lower extremity arteries integrating B-mode two-dimensional vascular structure, Doppler spectral analysis and color flow Doppler imaging. COMPARISON: No relevant prior studies available. FINDINGS: Right common femoral artery: Atherosclerotic calcification noted involving the right common femoral artery. Multiphasic waveforms are identified with peak systolic velocities between 177 and 206 cm/s. Right deep femoral: Atherosclerotic calcification with mild narrowing of the proximal right profunda femoral artery with multiphasic waveforms in a peak systolic velocity of 166 cm/s. Right superficial femoral artery: Atherosclerotic calcification involving the right superficial femoral artery with biphasic to monophasic waveforms distally with peak systolic velocities between 175 cm/s and 56 cm/s at the mid superficial femoral artery. There is prominent atherosclerotic disease involving the distal right superficial femoral artery with focal elevated waveforms and spectral broadening with peak systolic velocity of 107 cm/s and monophasic waveforms. Beyond this point, the peak systolic velocity of the distal femoral artery is 51 cm/s with monophasic waveforms. Right popliteal artery: The right popliteal artery demonstrates peak systolic velocity of 133 cm/s with spectral broadening and monophasic waveforms. Atherosclerotic disease noted. The distal popliteal artery is occluded. Right calf/foot arteries: The proximal right posterior tibial artery is occluded. There is reconstitution of the distal right posterior tibial artery is monophasic waveforms in a peak systolic velocity of 32 cm/s. The peroneal artery is patent with monophasic waveforms in a peak systolic velocity between 18 and 19 cm/s. The anterior tibial artery is patent proximally with monophasic waveforms in a peak systolic velocity of 48 cm/s. The mid anterior tibial artery is occluded. There is distal reconstitution with the dorsalis pedis artery demonstrating a peak stalk velocity of only 14 cm/s an monophasic waveforms. Soft tissues: Unremarkable. IMPRESSION: 1. Extensive at this chronic calcification of the right lower extremity. The right superficial femoral artery is patent with biphasic waveforms proximally. There is prominent atherosclerotic disease involving the distal right superficial femoral artery with focal elevated waveforms and spectral broadening, consistent with a hemodynamic stenosis of 50-69%. Distal to this stenosis, there is monophasic waveforms. 2. Extensive atherosclerotic disease involving the right popliteal artery. The distal right popliteal artery is occluded. The occlusion extends to the proximal right posterior tibial artery. 3. The right mid anterior tibial artery is occluded. There is faint distal reconstitution of the right dorsalis pedis artery with monophasic waveforms. The right peroneal artery demonstrates monophasic waveforms. Electronically signed by: Siddhartha Decker MD 04/23/23 21:55 PM Venous Doppler Study 04/23/23 18:43 Exam(s): US VENOUS RIGHT LOWER EXTREMITY EXAM: US Duplex Right Lower Extremity Veins CLINICAL HISTORY: Redness, swelling right foot, Eval DVT. TECHNIQUE: Real-time duplex ultrasound scan of the right lower extremity veins integrating B-mode two-dimensional vascular structure, Doppler spectral analysis, color flow Doppler imaging and compression. COMPARISON: No relevant prior studies available. FINDINGS: Deep veins: No DVT in the visualized right common femoral, femoral, proximal deep femoral or popliteal veins. The veins demonstrate normal color flow, are normally compressible, with normal phasic flow and/or augmentation response. The interrogated calf veins are patent. Superficial veins: Incidental hyperechoic calcific densities in the right short saphenous vein involving the right popliteal fossa. The saphenofemoral junction is patent. Soft tissues: No acute findings. No popliteal cyst. IMPRESSION: No evidence for deep vein thrombosis involving the right lower extremity. Electronically signed by: Siddhartha Decker MD 04/23/23 21:42 PM MDM Narrative Physical exam and history were performed. Nursing notes, EMR, and Medication List were personally reviewed. No social concerns were identified as barriers to patients care. Patient appears to have concern for possible cellulitis to the right foot. He was referred here through his PCPs office. Patient was seen during a period of very high ER volume and acuity with extended wait times. Nursing protocol order have been performed and some of these are available for my review at the time of patient encounter. Patient's blood work is as above and was reviewed. He does not have a significantly elevated white blood cell count, gross anemia, bandemia, or significant electrolyte imbalance. Glucose is over 300. Transaminases are not diagnostic. Arterial ultrasound is concerning as the patient has extensive atherosclerotic disease. He appears to have some very minimal flow into the right foot, and I suspect this is contributing to his symptoms. I did reach out to the on-call vascular specialist, Dr. Cronin, and we will start the patient on antibiotics and admit to the hospital. Case was discussed with Dr. Merritt, and patient was given daptomycin and Zosyn here in the ER. Anticoagulation was considered, however the patient's recent bleeding event this was deferred at this time. Please see the hospitalist and specialist dictations for further patient course, plan, and disposition. The chart was completed utilizing [employer] Speech Voice Recognition Software. Grammatical errors, random word insertions, pronoun errors, and incomplete sentences are an occasional consequence of this system due to software limitations, ambient noise, and hardware issues. Any formal questions or concerns about the content, text, or information contained within the body of this dictation should be directly addressed to the provider for clarification. . Impression & Plan Arterial occlusion, Cellulitis of foot, Diabetes Discharge Plan Visit Data Chief Complaint: Infection Stated Complaint: CELLULITIS IN RT FOOT ED Provider: Krista Barr ED Midlevel Provider: Rafael Quinonez Discharge Problem: Arterial occlusion, Cellulitis of foot, Diabetes Patient Disposition: Admitted As Inpatient Discharge Instructions Interventions: ED Discharge Assessment Last Done: 04/24/23 01:02
[2023-04-23] MEDS ORDERED: DAPTOmycin 400 MG in SYRINGE 0 ML IV SCH (23:15)
--- NOTE | 2023-04-23 23:51 | History & Physical Report ---
Date of Service April 23, 2023 Assessment & Plan (1) Arterial occlusion: Plan: 72 YOM with vascular history with CABG x4, CEA 2021 and diabetic - Presents with almost 2 month history of right foot wound and undergoing treatment for cellulitis - He states his foot has looked like this since January and may have gotten worse over the past few weeks - Doppler as above - NPO after midnight - Vascular surgery consulted- No anticoagulation recommended at this time s econdary to traumatic IV - Surgical care and evaluation per vascular surgery (2) Diabetic foot ulcer: Plan: Diabetic foot ulcer complicated by vascular disease - With surrounding foot erythema and edema- no previous comparison - Wound care consultation placed for assitance in managing - Zosyn and Daptomycin for coverage at this time - ambulate with assistance (3) Cellulitis of foot: Plan: As above (4) CKD (chronic kidney disease), stage III: 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 since - Plasmalyte overnight for pre-procedural hydration for 1 liter - follow daily BMP (5) Hyperkalemia: Plan: Technically still within normal range of 3.5-4.5- has been elevated since 04/19/23 - His AJAY had been held and his Bactrim changed by PCP - This is likely related to ischemia of his foot as well and has been downtrending - No ECG changes and no acute need to intervene at this time - Follow with daily labs - Consider holding HCTZ or changing to Lasix once operative period completed (6) Diabetes mellitus, type 2: Plan: Poorly controlled as outpatient records state normal BG >200s - Continue Lantus BID and Sliding Scale - NPO after midnight would recommend continuing basal insulin in AM (7) S/P CABG x 4: Plan: Chronic stable- patient has no complaints of chest pain - ECG on chart with last comparison in 2017 which appears to be prior to his CABG - He reports no activity restitutions or pain/dyspnea when ambulating - Does not appear to be on any anti-platelet medication for his hx of CAD/CABG/CEA- likely to change following this episode of arterial occlusion (8) Hyperlipidemia: Plan: Chronic condition- defer manamgne to PCP - Will hold his cholesterol medication while on Dapto - Should likely increase to high intensity statin - unsure of tolerance issues (9) S/P AVR: Plan: chronic stable - without new symptoms to be reported - Bioprosthetic valve - not on penitentiary anticoagulation (10) S/P carotid endarterectomy: Plan: As above (11) DVT prophylaxis: Plan: SCD to left leg - hold chemoprophylaxis until surgical evaluation no therapy to RIGHT History of Present Illness Chief Complaint: foot infection Primary Care Provider: Ag Cuellar, DO 72 YOM with past medical history of: Intraventricular Hemorrhage 02/21 traumatic from falling down steps, DMII on insulin, CAD - 4v CABG 2018, Aortic Tissue Valve replacement 2018, CEA 2021, HTN, HLD, CKD. Patient presents to the EMD at the referral from his PCP secondary to concerns of failure of outpatient therapy secondary to right foot ulcerations. He has a right foot lateral wound covered with eschar and right great toe wound covered with eschar. Surrounding erythema from foot up to just above the ankle. Patient states that this occurred when he fell down the steps in 02/21 and has not healed. He is being treated at home by his with "some cream and ointment". Appears he was on Bactrim as outpatient in March- was referred to EMD during that time, however appears as patient did not take recommendations. He was again seen by PCP on 04/19/23 for concern of hyperkalemia as well as continued erythema to the right foot. He was changed from Bactrim to Augmentin for his foot. Patient reports to the EMD today 04/24/23 for evaluation of his right leg. There was some concern for decrease pulses and swelling in the right foot and leg. He underwent vascular arterial and venous duplex studies. The Arterial Duplex was notable for extensive atherosclerotic disease with the right popliteal, with occlusion of the distal right popliteal artery and the occlusion extended to the proximal right posterior tibial Artery, there is also occlusion at the right mid anterior tibial artery with faint distal reconstitution of the right DP. Also noted was 50-68% distal stenosis to the superficial femoral artery. Vascular Surgery Dr. Cronin was reportedly contacted by the LUCINA Quinonez in the EMD upon findings with recommendations to admit, NPO, antibiotics and he will evaluate him in the morning. Was also reported to not anticoagulate secondary to IVH he suffered in 02/21. Patient will be admitted to the [facility]. IVF overnight for his renal indices. CODE: DNR/DNI Allergies Allergy/AdvReac Type Severity Reaction Status Date / Time dulaglutide [From [facility]] AdvReac Mild Fatigued Verified 04/24/23 15:28 metformin AdvReac Mild Diarrhea Verified 04/24/23 15:28 Home Medications Medication Instructions Recorded Confirmed Type blood-glucose meter (OneTouch #1 ea 01/05/22 04/19/23 Rx Ultra2 Meter) blood sugar diagnostic #100 ea 02/09/22 04/19/23 Rx rosuvastatin 10 mg tablet 10 mg PO HS #90 tabs 09/10/22 04/23/23 Rx metoprolol tartrate 25 mg tablet 25 mg PO BID #180 tabs 10/04/22 04/23/23 Rx blood sugar diagnostic (OneTouch #200 ea 10/25/22 04/19/23 Rx Ultra Test strips) pen needle, diabetic 32 gauge x #200 ea 11/19/22 04/19/23 Rx 1/4" (Comfort EZ Pen [place]) lisinopril 20 mg tablet 20 mg PO BID #180 tabs 11/28/22 04/23/23 Rx glipizide 10 mg tablet 5 mg (1/2 x 10 mg) PO DAILY #180 01/29/23 04/23/23 Rx tabs hydrochlorothiazide 12.5 mg tablet 12.5 mg PO DAILY #90 tabs 01/29/23 04/23/23 Rx dapagliflozin propanediol 10 mg 10 mg PO DAILY #90 tabs 01/31/23 04/23/23 Rx tablet (Farxiga) acetaminophen 325 mg tablet 975 mg PO TID 02/26/23 04/23/23 History insulin glargine 100 unit/mL (3 11 - 16 unit (0.11 - 0.16 mL) 03/06/23 04/23/23 Rx mL) subcutaneous pen (Lantus subcut BID #30 mL Solostar U-100 Insulin) amoxicillin 875 mg-potassium 1 tab PO BID #20 tabs 04/19/23 04/23/23 Rx clavulanate 125 mg tablet doxycycline hyclate 100 mg capsule 100 mg PO BID #20 caps 04/19/23 04/23/23 Rx amoxicillin 500 mg tablet 2,000 mg PO DIRECTED PRN PRIOR 04/23/23 04/23/23 History TO DENTAL PROCEDURES Past Med/Surg History Medical History Coronary artery disease Essential tremor Aortic stenosis Aortic insufficiency History of COVID-19 05/2020; asymptomatic Diabetes mellitus, type 2 NIDDM Hyperlipidemia Hypertension Surgical History History of right cataract surgery History of cardiac catheterization 12/2019 [place] - abn stress test ---> CABG (sees Dr. Guevara) S/P AVR (05/13/20[place] [facility] [place], [place] at time of 4 vessel CABG. 25 mm Medtronic pericardial bioprosthesis S/P CABG x 4 (05/13/20) [facility] [place], (ESTRADA to LAD, aorta via SVG to diagonal, OM1 and PDA). Also had AVR performed with 25 mm Medtronic pericardial bioprosthetic valve S/P carotid endarterectomy (05/10/20) right side, Dr Ac, [facility] [place] of colonoscopy (02/19/18) 12/2017 repeat 10 yrs Status post right foot surgery HX repair of right great toe amputation History of lumbar spinal fusion rods in place History of repair of right rotator cuff Hx of vasectomy History of umbilical hernia repair WITH GALLBLADDER SURGERY History of cholecystectomy History of tooth extraction wisdom teeth Family History Mother Family history of diabetes mellitus Diabetes Myocardial infarction Father Prostate cancer Stroke Grandmother (Maternal) Diabetes Uncle Myocardial infarction Denies family history of Ovarian cancer Breast cancer Lung cancer Colorectal cancer Social History Smoking Status: Former smoker Cigarettes Per Day: COUPLE A DAY IN THE MORNING WITH COFFEE/ADVISED NPO; Second Hand Exposure: Yes (); Do You Dip or Chew Tobacco: Yes; Hx Alcohol Use: No Hx Substance Use: No Preferred Language: Belarusian Communication Ability: Effective Visual Impairment: Limited Hearing Ability: Normal Metal Tube Cutter Required: No Beliefs That Will Affect Care: None marital status: Current Living Situation: Spouse current occupational status: employed and retired current occupation: retired- still farms How many Children do You have: 4 Feels Safe at Home: Yes Childhood Exposure to Second-Hand Smoke: No caffeine: Yes Dental Care, Regularly: Yes Physical Activity Frequency: Daily Physical Activity Frequency Comment: hernandez Seatbelt Use: never Sunscreen Use: No Assistive Devices: Cane and Walker Review of Systems Review of Systems: REVIEW OF SYSTEMS: Constitutional: No fever, sweats or chills Eyes: No diplopia, no worsening or blurred vision ENT: normal hearing, no trouble swallowing Respiratory: No cough, sputum, dyspnea at rest or on exertion Cardiovascular: No chest pain, tightness or palpitations Abdomen: No pain, nausea, vomiting, diarrhea or constipation Musculoskeletal: No joint pain, calf pain, swelling Neurologic: No weakness, numbness/tingling, or balance problems Psychiatric: No anxiety or depression Skin: + wound and redness to right leg Physical Exam Physical Exam: PHYSICAL EXAM: General: awake, alert, no apparent distress Head: Normocephalic, atraumatic ENT: PERRL, EOMI, no pharyngeal exudate, mucous membranes moist Neuro: AAO x 3, speech clear and appropriate, strength intact bilaterally 5/5, sensation intact and equal all extremities and dermatomes, no pronator drift Chest: equal rise and fall of the chest, no accessory muscle use, no heaves or thrills, Clear to auscultation, on room air, Cardiac: Regular rate and rhythm, telemetry reviewed- NSR no ectopy, skin warm dry, cap refill <3 seconds, peripheral pulses +2 right upper, left upper, left lower; RIGHT lower DP 2+ PT no palpable, 2 plus popliteal, no JVD, systolic murmur, 2+ edema to right lower foot to just above ankle GI: NABS x 4 quadrants, soft, nontender to palpation, no rebound, guarding or tenderness : Spontaneously voiding, no pain, no CVA tenderness, Skin: RIGHT lateral foot wound dime sized with eschar covering, no drainage, with surrounding erythema of the entire foot, right great toe with small ulceration with eschar covering, no drainage Results & Data Results & Data Vital Signs (Past 12 Hours) Vital Signs Temp Pulse Pulse Resp BP BP Pulse Ox 04/23/23 22:26 62 20 168/92 H 99 04/23/23 20:02 63 16 164/79 H 95 04/23/23 18:41 35.9 C L 95 H 15 157/77 H 99 O2 Del Method 04/23/23 22:26 Room Air 04/23/23 20:02 Room Air 04/23/23 18:41 Room Air Laboratory Results Abnormal lab results 04/23/23 04/23/23 Range/Units 20:15 20:20 RBC 4.13 L (4.70-6.10) M/uL Hgb 13.2 L (14.0-18.0) g/dl Hct 38.8 L (42.0-52.0) % Neut # (Auto) 7.20 H (1.40-6.50) K/uL [place] # (Auto) 0.80 H (0.11-0.59) K/uL Potassium 5.2 H (3.5-5.1) mmol/L BUN 55 H (6-23) mg/dl Creatinine 1.61 H (0.6-1.4) mg/dl BUN/Creatinine Ratio 34.2 H (10-20) Glucose 335 H* (70-99(Fasting)) mg/dl Urine Protein 2+ H (Negative) Urine Glucose (UA) 3+ H (Negative) Diagnostic Findings Duplex Scan Lower Extremity Artery 04/23/23 18:43 Exam(s): US ARTERIAL RIGHT LOWER EXTREMITY EXAM: US Duplex Right Lower Extremity Arteries CLINICAL HISTORY: Poor healing, necrosis, infection. TECHNIQUE: Real-time duplex ultrasound scan of the right lower extremity arteries integrating B-mode two-dimensional vascular structure, Doppler spectral analysis and color flow Doppler imaging. COMPARISON: No relevant prior studies available. FINDINGS: Right common femoral artery: Atherosclerotic calcification noted involving the right common femoral artery. Multiphasic waveforms are identified with peak systolic velocities between 177 and 206 cm/s. Right deep femoral: Atherosclerotic calcification with mild narrowing of the proximal right profunda femoral artery with multiphasic waveforms in a peak systolic velocity of 166 cm/s. Right superficial femoral artery: Atherosclerotic calcification involving the right superficial femoral artery with biphasic to monophasic waveforms distally with peak systolic velocities between 175 cm/s and 56 cm/s at the mid superficial femoral artery. There is prominent atherosclerotic disease involving the distal right superficial femoral artery with focal elevated waveforms and spectral broadening with peak systolic velocity of 107 cm/s and monophasic waveforms. Beyond this point, the peak systolic velocity of the distal femoral artery is 51 cm/s with monophasic waveforms. Right popliteal artery: The right popliteal artery demonstrates peak systolic velocity of 133 cm/s with spectral broadening and monophasic waveforms. Atherosclerotic disease noted. The distal popliteal artery is occluded. Right calf/foot arteries: The proximal right posterior tibial artery is occluded. There is reconstitution of the distal right posterior tibial artery is monophasic waveforms in a peak systolic velocity of 32 cm/s. The peroneal artery is patent with monophasic waveforms in a peak systolic velocity between 18 and 19 cm/s. The anterior tibial artery is patent proximally with monophasic waveforms in a peak systolic velocity of 48 cm/s. The mid anterior tibial artery is occluded. There is distal reconstitution with the dorsalis pedis artery demonstrating a peak stalk velocity of only 14 cm/s an monophasic waveforms. Soft tissues: Unremarkable. IMPRESSION: 1. Extensive at this chronic calcification of the right lower extremity. The right superficial femoral artery is patent with biphasic waveforms proximally. There is prominent atherosclerotic disease involving the distal right superficial femoral artery with focal elevated waveforms and spectral broadening, consistent with a hemodynamic stenosis of 50-69%. Distal to this stenosis, there is monophasic waveforms. 2. Extensive atherosclerotic disease involving the right popliteal artery. The distal right popliteal artery is occluded. The occlusion extends to the proximal right posterior tibial artery. 3. The right mid anterior tibial artery is occluded. There is faint distal reconstitution of the right dorsalis pedis artery with monophasic waveforms. The right peroneal artery demonstrates monophasic waveforms. Electronically signed by: Siddhartha Decker MD 04/23/23 21:55 PM Venous Doppler Study 04/23/23 18:43 Exam(s): US VENOUS RIGHT LOWER EXTREMITY EXAM: US Duplex Right Lower Extremity Veins CLINICAL HISTORY: Redness, swelling right foot, Eval DVT. TECHNIQUE: Real-time duplex ultrasound scan of the right lower extremity veins integrating B-mode two-dimensional vascular structure, Doppler spectral analysis, color flow Doppler imaging and compression. COMPARISON: No relevant prior studies available. FINDINGS: Deep veins: No DVT in the visualized right common femoral, femoral, proximal deep femoral or popliteal veins. The veins demonstrate normal color flow, are normally compressible, with normal phasic flow and/or augmentation response. The interrogated calf veins are patent. Superficial veins: Incidental hyperechoic calcific densities in the right short saphenous vein involving the right popliteal fossa. The saphenofemoral junction is patent. Soft tissues: No acute findings. No popliteal cyst. IMPRESSION: No evidence for deep vein thrombosis involving the right lower extremity. Electronically signed by: Siddhartha Decker MD 04/23/23 21:42 PM Medications Administered Daptomycin 400 mg/ Syringe 8 mls @ 4 mls/min IV Q24H BRYN; Protocol Stop: 04/25/23 23:14 Last Admin: 04/23/23 23:38 Dose: 4 mls/min Documented By: AMBREEN Discontinued Medications Sodium Chloride (Nss) 500 mls @ 999 mls/hr IV .Q31M ONE Stop: 04/23/23 19:16 Last Infusion: 04/23/23 22:23 Dose: Infused Documented By: Admin: 04/23/23 20:13 Dose: 999 mls/hr Documented By: DAVIS Piperacillin Sod/Tazobactam Sod (Zosyn) 4.5 gm in 100 mls @ 200 mls/hr IV NOW ONE Stop: 04/23/23 19:15 Last Infusion: 04/23/23 22:23 Dose: Infused Documented By: Admin: 04/23/23 20:14 Dose: 200 mls/hr Documented By: DAVIS ECG Additional Comments: Normal sinus rhythm Possible Anterior infarct , age undetermined ST & T wave abnormality, consider lateral ischemia Abnormal ECG When compared with ECG of 27-DEC-2016 08:43, Borderline criteria for Anterior infarct are now Present ST now depressed in Lateral leads T wave inversion now evident in Lateral leads Confirmed by Mick Wallis ([id number]) on 02/22/2023 1:12:47 PM Code Status & VTE Plan VTE Prophylaxis Plan VTE Prophylaxis will be ordered: Yes Supervising Physician Co-Signing Physician Notes Attending addendum: I have physically seen this patient, have supervised the TRICE's activities, and agree with the H&P unless as otherwise noted. Assessment and Plan: Right lower extremity arterial occlusion/diabetic foot ulcer- Vascular surgery consulted will see patient in a.m. No anticoagulation due to history of recent cerebral bleeds 02/21 Zosyn 4.5 g IV every 8 hours Daptomycin IV CKD stage III- Creatinine stable at 1.6 Plasma-Lyte IV fluids overnight, 80 mL/h x 1 L Follow serial renal function panel and magnesium level Diabetes mellitus type 2- Poorly controlled Lantus twice daily and NovoLog SSI Check hemoglobin A1c Remaining orders and notations as noted PG Care Time/CCT Total # of Minutes Spent Total Time Spent with Patient: Total time spent is greater than 50% in coordination of care (as documented) at patient's floor/unit and/or counseling patient: Coding Level of Care Code 41046 INT INP/OBS CARE 3/75MIN Diagnoses Arterial occlusion I70.90 Diabetic foot ulcer E11.621; L97.509 Cellulitis of foot L03.119 CKD (chronic kidney disease), stage III N18.30 Hyperkalemia E87.5 Diabetes mellitus, type 2 E11.9 S/P CABG x 4 Z95.1 Hyperlipidemia E78.5 S/P AVR Z95.2 S/P carotid endarterectomy Z98.890 DVT prophylaxis Z29.9
[2023-04-24] MEDS ORDERED: GLUCAGON FOR INJ 1 MG VIAL SQ PRN (01:59)
[2023-04-24] MEDS ORDERED: CARBOHYDRATES FOR HYPOGLYCEMIA PO PRN (01:59)
[2023-04-24] MEDS ORDERED: DEXTROSE 50% 50 ML SYRINGE IV PRN (01:59)
[2023-04-24] MEDS ORDERED: ONDANSETRON INJ 2 MG/ML 2 ML VIAL IV PRN (01:59)
[2023-04-24] MEDS ORDERED: GLUCOSE 10 TAB/TUBE PO PRN (01:59)
[2023-04-24] MEDS ORDERED: POLYETHYLENE (MIRALAX) 17 GM PACK PO PRN (01:59)
[2023-04-24] MEDS ORDERED: GLUCOSE 40% GEL 15 GM TUBE PO PRN (01:59)
[2023-04-24] MEDS ORDERED: PLASMA-LYTE A 1,000 ML IV SCH (03:00)
[2023-04-24] MEDS: PIPERACILLIN/TAZOBACTAM 4.5 GM in DEXTROSE 5% MINI-B 100 ML IV SCH ×3 (03:26→18:38)
[2023-04-24] MEDS ORDERED: INSULIN ASPART PER UNIT CHARGE SC SCH (06:00)
--- NOTE | 2023-04-24 07:27 | XRay Report ---
XR foot RT min 3V routine HISTORY: 72 years-old Male Infection acute right foot pain COMPARISON: 04/19/2023 TECHNIQUE: 3 views of the right foot FINDINGS: Prior partial amputation of the first distal phalanx. 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 [id number] osteoarthritis of the interphalangeal joints. No acute fracture, dislo cation or new osseous erosions. Arterial calcifications. Degenerative spurring of the calcaneus. Mild diffuse soft tissue prominence. IMPRESSION: 1. No acute osseous abnormality. 2. Chronic findings as above. ACT 112: Negative or not required by law. The above report was generated using voice recognition software. It may contain grammatical, syntax o r spelling errors. Electronically signed by: Elvin Olivares M.D. 04/24/2023 7:25 AM
[2023-04-24 07:40] LABS: Basophils # (auto) 0.09 K/uL (0.00-0.20); Eosinophils # (auto) 0.32 K/uL (0.00-0.50); Eosinophils % (auto) 3.4 %; Hematocrit (blood only) 35.1 % (42.0-52.0); Hemoglobin 12.1 g/dl (14.0-18.0); Immature Granulocytes # (auto) 0.03 K/uL (0.01-0.20); Immature Granulocytes % (auto) 0.3 %; Lymphocytes # (auto) 1.73 K/uL (1.20-3.40); Lymphocytes % (auto) 18.5 %; Mean Corpuscular Hemoglobin 32.1 pg (25.0-34.0); Mean Corpuscular Hgb Conc 34.5 g/dL (32.0-36.0); Mean Corpuscular Volume 93.1 fL (80.0-100.0); Mean Platelet Volume 10.2 fL (9.4-12.4); Monocytes # (auto) 0.76 K/uL (0.11-0.59); Monocytes % (auto) 8.1 %; Neutrophils % (auto) 68.7 %; Platelet Count 170 K/uL (130-400); RDW Coefficient of Variation 12.6 % (11.5-14.5); RDW Standard Deviation 43.5 fL (36.4-46.3); Red Blood Count 3.77 M/uL (4.70-6.10); White Blood Count 9.33 K/ul (4.8-10.8)
[2023-04-24 07:48] LABS: Calcium 9.4 mg/dl (8.6-10.3); Magnesium 1.8 mg/dl (1.7-2.4); Potassium 4.3 mmol/L (3.5-5.1)
[2023-04-24 07:54] LABS: BUN Creatinine Ratio 34.2 (10-20); Creatinine Clr Calc Pharmacy 47.9 ml/min; Est GFR (African American) 55.3 ml/min; Est GFR (Non-African American) 47.7 ml/min
[2023-04-24] MEDS: ACETAMINOPHEN 325 MG TAB PO SCH ×3 (08:45→21:45)
[2023-04-24] MEDS: LANTUS PER UNIT CHARGE SQ SCH ×2 (08:46→21:45)
--- NOTE | 2023-04-24 08:57 | Consultation ---
Date of Consultation April 24, 2023 Assessment & Plan (1) Peripheral arterial disease: Pt with significant PAD to RLE and 2 nonhealing painful eschars. US with distal pop occlusion and infrapop disease and monophasic signals to foot. Pt discussed with Dr Cronin, recommends pt undergo RLE angio with intervention in OR on SATURDAY. If pt felt to be medically stable prior to then, pt can be discharged and have procedure done as outpt on Saturday. Also discussed with pt's daughter at his request. History of Present Illness Reason for Consultation: RLE PAD Attending Physician: Lorri Almonte MD History of Present Illness 72 yo m with hx of CAD s/p CABG x4, carotid stenosis s/p CEA, HTN, CKD, DMII, hyperlipidemia, aortic stenosis s/p AVR, admitted for RLE wounds, seen in consultation today for PAD of RLE. Pt known to Dr Cronin's practice for carotid disease, last seen in 01/21. Pt states he had a fall down the stairs on [place] and was flown to [facility] [place]/intraparenchymal bleed. His plavix was stopped at that time. States within 1 week of being discharged, he noted pain in R foot and 2 small black wounds. States these have gotten a little worse, no better since then. states pain with anything touching his R lateral foot and with walking on it. Denies calf claudication, but states has not been ambulating much. Saw his PCP and has gone through 2 rounds of abx with no improvement. Denies MERRILL, fever, chest pain, SOB, abd pain, N/V, rest pain, other complaints. RLE arterial US demonstrates distal pop occlusion, PT and AT occlusions, as well as significant diffuse disease. Allergies Allergy/AdvReac Type Severity Reaction Status Date / Time No Known Allergies Allergy Unknown Verified 04/23/23 22:33 Home Medications Medication Instructions Recorded Confirmed Type blood-glucose meter (SafendTouch #1 ea 01/05/22 04/19/23 Rx Ultra2 Meter) blood sugar diagnostic #100 ea 02/09/22 04/19/23 Rx rosuvastatin 10 mg tablet 10 mg PO HS #90 tabs 09/10/22 04/23/23 Rx metoprolol tartrate 25 mg tablet 25 mg PO BID #180 tabs 10/04/22 04/23/23 Rx blood sugar diagnostic (OneTouch #200 ea 10/25/22 04/19/23 Rx Ultra Test strips) pen needle, diabetic 32 gauge x #200 ea 11/19/22 04/19/23 Rx 1/4" (Comfort EZ Pen [place]) lisinopril 20 mg tablet 20 mg PO BID #180 tabs 11/28/22 04/23/23 Rx glipizide 10 mg tablet 5 mg (1/2 x 10 mg) PO DAILY #180 01/29/23 04/23/23 Rx tabs hydrochlorothiazide 12.5 mg tablet 12.5 mg PO DAILY #90 tabs 01/29/23 04/23/23 Rx dapagliflozin propanediol 10 mg 10 mg PO DAILY #90 tabs 01/31/23 04/23/23 Rx tablet (Farxiga) acetaminophen 325 mg tablet 975 mg PO TID 02/26/23 04/23/23 History insulin glargine 100 unit/mL (3 11 - 16 unit (0.11 - 0.16 mL) 03/06/23 04/23/23 Rx mL) subcutaneous pen (Lantus subcut BID #30 mL Solostar U-100 Insulin) amoxicillin 875 mg-potassium 1 tab PO BID #20 tabs 04/19/23 04/23/23 Rx clavulanate 125 mg tablet doxycycline hyclate 100 mg capsule 100 mg PO BID #20 caps 04/19/23 04/23/23 Rx amoxicillin 500 mg tablet 2,000 mg PO DIRECTED PRN PRIOR 04/23/23 04/23/23 History TO DENTAL PROCEDURES Patient History Medical History Coronary artery disease Essential tremor Aortic stenosis Aortic insufficiency History of COVID-19 05/2020; asymptomatic Diabetes mellitus, type 2 NIDDM Hyperlipidemia Hypertension Surgical History History of right cataract surgery History of cardiac catheterization 12/2019 [place] - abn stress test ---> CABG (sees Dr. Guevara) S/P AVR (05/13/20) [facility], Dr Rodriguez, performed at time of 4 vessel CABG. 25 mm Medtronic pericardial bioprosthesis S/P CABG x 4 (05/13/20) [facility], Dr Rodriguez, (ESTRADA to LAD, aorta via SVG to diagonal, OM1 and PDA). Also had AVR performed with 25 mm Medtronic pericardial bioprosthetic valve S/P carotid endarterectomy (05/10/20) right side, Dr Ac, [facility] History of colonoscopy (02/19/18) 12/2017 repeat 10 yrs Status post right foot surgery HX repair of right great toe amputation History of lumbar spinal fusion rods in place History of repair of right rotator cuff Hx of vasectomy History of umbilical hernia repair WITH GALLBLADDER SURGERY History of cholecystectomy History of tooth extraction wisdom teeth Family History Mother Family history of diabetes mellitus Diabetes Myocardial infarction Father Prostate cancer Stroke Grandmother (Maternal) Diabetes Uncle Myocardial infarction Denies family history of Ovarian cancer Breast cancer Lung cancer Colorectal cancer Social History Smoking Status: Former smoker Cigarettes Per Day: COUPLE A DAY IN THE MORNING WITH COFFEE/ADVISED NPO; Second Hand Exposure: Yes (); Do You Dip or Chew Tobacco: Yes; Hx Alcohol Use: No Hx Substance Use: No Preferred Language: Indonesian Communication Ability: Effective Visual Impairment: Limited Hearing Ability: Normal Drafter Engineering Required: No Beliefs That Will Affect Care: None marital status: Current Living Situation: Spouse current occupational status: employed and retired current occupation: retired- still farms How many Children do You have: 4 Feels Safe at Home: Yes Safety Concerns: Feels Safe At This Time Childhood Exposure to Second-Hand Smoke: No caffeine: Yes Dental Care, Regularly: Yes Physical Activity Frequency: Daily Physical Activity Frequency Comment: hernandez Seatbelt Use: never Sunscreen Use: No Assistive Devices: Glasses Review of Systems Review of Systems: All systems reviewed & are unremarkable except as noted in HPI & below Physical Exam Constitutional: WD/WN, vitals as above not in distress ENMT: Ears: no hearing impairment Neck: trachea midline (CEA scar well healed) Respiratory: normal respiratory effort, lungs clear to auscultation Auscultation: + diminished lung sounds Cardiovascular: Rate/Rhythm: regular rate and regular rhythm Vessels: femoral pulses present, posterior tibial pulses present (RLE monophasic doppler signal, LLE biphasic doppler signal) and dorsalis pedis pulses present (RLE faint monophasic doppler, LLE biphasic doppler); + abnormal peripheral pulses Extremities: normal capillary refill (RLE 6 sec, LLE 3 sec); no edema Gastrointestinal (Abdomen): Inspection/Auscultation: abdomen normal to inspection and normal bowel sounds Percussion/Palpation: abdomen soft; a bdomen nontender Musculoskeletal: no cyanosis or clubbing, extremities motor strength 5/5 Skin: + erythema (mild, strawberry type erythe ma to R forefoot) and + eschar (R 5th MT and 1st toe tender, well demarcated, dry, no induration) Neurologic: moves all extremities and awake; no focal motor deficits and not confused Psychiatric: A+Ox3, euthymic affect Results & Data Vital Signs (Past 12 Hours) Vital Signs Temp Pulse Pulse Resp BP BP Pulse Ox 04/24/23 07:07 36.7 C 68 18 137/89 98 04/24/23 07:02 36.7 C 68 18 137/89 98 04/24/23 02:03 04/24/23 02:03 36.7 C 70 16 168/90 H 99 04/24/23 01:02 63 18 150/70 H 96 04/24/23 00:00 70 20 158/65 H 98 04/23/23 22:26 62 20 168/92 H 99 O2 Del Method 04/24/23 07:07 Room Air 04/24/23 07:02 Room Air 04/24/23 02:03 Room Air 04/24/23 02:03 Room Air 04/24/23 01:02 Room Air 04/24/23 00:00 Room Air 04/23/23 22:26 Room Air
--- NOTE | 2023-04-24 09:02 | Hospitalist Progress Note ---
Date of Service April 24, 2023 Assessment & Plan (1) Arterial occlusion: Plan: 72 YOM with vascular history with CABG x4, CEA 2021 and diabetic - Presents with almost 2 month history of right foot wounds and undergoing treatment for cellulitis - He states his foot has looked like this since January, wounds started after he went off plavix, and pain and redness worse over the past week - arterial duplex: "extensive atherosclerotic disease with the right popliteal, with occlusion of the distal right popliteal artery and the occlusion extended to the proximal right posterior tibial Artery, there is also occlusion at the right mid anterior tibial artery with faint distal reconstitution of the right DP. Also noted was 50-68% distal stenosis to the superficial femoral artery" - venous duplex neg for DVT - vascular surgeon Dr. Cronin consulted - discussed with him and his team several times throughout the day - RLE angiogram recommended, interventions anticipated, would need at least ASA if not DAPT following procedure Reviewed records from [facility] late January 2024. Was transferred there for admission with traumatic SAH, IPH, IVH after falling down stairs. Had been on ASA 81 mg at the time. This event was 8 weeks ago. Anticoagulation or antiplatelet can generally be resumed safely 4-8 weeks after ICH, depending on the risk:benefit. 10 weeks may be optimal if safe to defer for that long. -ordered repeat noncontrast head CT to assess resolution of ICH -showed 11 mm R SDH with some acute blood products visible - discussed with radiologist -consulted with neurosurgery at [facility], spoke with Dr. Alamo who reviewed our head CT film in comparison to their last film 03/05. SDH was present previously, may be same to slightly increased but acute blood products are new. Advised repeat head CT today to confirm stability (ordered for 6h interval, reading pending), he will arrange follow up in neurosurgery clinic with head CT in 2 weeks and assess at that time if he can be cleared for vascular procedures with need for DAPT or anticoagulants -discussed with Dr. Cronin - occlusions are chronic so procedure will be rescheduled after neurosurgery follow up. Hoping that it will be safe to make interventions soon because he does have risk of recurrent infection, cellulitis or osteomyelitis with his nonhealing wounds. -discussed with the patient and his daughter at bedside today - plan to treat in hospital 1-2 more days with IV antibiotics to resolve current foot cellulitis then follow up as above. 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- improved to 1.46 after IV hydration - follow daily BMP (5) Hyperkalemia: Plan: Technically still within normal range of 3.5-4.5- has been elevated since 04/19/23 - His AJAY had been held and his Bactrim changed by PCP - This is likely related to ischemia of his foot as well and has been downtrending - No ECG changes and no acute need to intervene at this time - Follow with daily labs - Normal today (6) Diabetes mellitus, type 2: Plan: Poorly controlled as outpatient records state normal BG >200s - Continue Lantus BID and Sliding Scale - reviewed BG 04/24 and 3/ checks at goal - no changes (7) S/P CABG x 4: Plan: Chronic stable- patient has no complaints of chest pain - ECG on chart with last comparison in 2017 which appears to be prior to his CABG - He reports no activity restitutions or pain/dyspnea when ambulating - Does not appear to be on any anti-platelet medication for his hx of CAD/CABG/CEA- likely to change following this episode of arterial occlusion (8) Hyperlipidemia: Plan: Chronic condition- defer to PCP - Will hold his cholesterol medication while on Dapto - Should likely increase to high intensity statin - unsure of tolerance issues (9) S/P AVR: Plan: chronic stable - without new symptoms to be reported - Bioprosthetic valve - not on parts counterman anticoagulation (10) S/P carotid endarterectomy: Plan: As above (11) DVT prophylaxis: Plan: SCD to left leg - hold chemoprophylaxis until serial head CT proves stable Admission and Anticipated Discharge Date Admission Date: April 23, 2023 Subjective Mr. Victoria has noted some improvement in right foot redness and pain since getting started on antibiotics yesterday. He denies having had any falls or hitting his head since discharge from [facility] late Nov. Has not been on ASA or plavix Had initially lightheadedness on standing following ICH that eventually resolved over a few weeks. No headaches weakness or vision changes. Physical Exam 2 Physical Exam: PHYSICAL EXAMINATION Last 24h vital signs reviewed, see documentation in flowsheet General: comfortable appearing, no distress HEENT: Normocephalic, atraumatic, pupils round and equal, sclerae anicteric, no conjunctival injection, moist mucus membranes Lungs: Normal respiratory effort. Clear to auscultation bilaterally. No RRW Heart: Regular rate and rhythm, no murmurs. No JVD Abdomen: Soft, nontender, nondistended. Bowel sounds present. Extremities: Warm, dry, no extremity edema. RLE with R 1st toe and R lateral foot wounds covered with dry black eschar, erythema and warmth on forefoot onto dorsum, not up onto ankle Neuro: Alert and oriented x 4, EOMI, VFF, rickey, face symm, speech intact, tongue midline, shoulder shrug intact, UE and LE strength 5/5, no PD. Psych: irritable affect and behavior Results & Data Results & Data Vital Signs (Past 12 Hours) Vital Signs Temp Pulse Pulse Resp BP BP Pulse Ox 04/24/23 07:07 36.7 C 68 18 137/89 98 04/24/23 07:02 36.7 C 68 18 137/89 98 04/24/23 02:03 04/24/23 02:03 36.7 C 70 16 168/90 H 99 04/24/23 01:02 63 18 150/70 H 96 04/24/23 00:00 70 20 158/65 H 98 04/23/23 22:26 62 20 168/92 H 99 O2 Del Method 04/24/23 07:07 Room Air 04/24/23 07:02 Room Air 04/24/23 02:03 Room Air 04/24/23 02:03 Room Air 04/24/23 01:02 Room Air 04/24/23 00:00 Room Air 04/23/23 22:26 Room Air Laboratory Results 04/24/23 06:29 04/24/23 06:29 PG Care Time/CCT Total # of Minutes Spent Total Time Spent with Patient: I personally spent: 120 minutes today on clinical care activities including: reviewing chart notes and vital signs reviewing labs reviewing studies reviewing the available outside records discussion with construction consultant(s) - neurosurgeon, vascular surgeon examining and counseling the patient counseling the patient's family writing orders documentation Coding Level of Care Code 30966 SUB INP/OBS CARE 3/50MIN (25 - SIGNIFICANT, SEPARATELY IDENTIFIABLE ) Diagnoses Arterial occlusion I70.90 Diabetic foot ulcer E11.621; L97.509 Cellulitis of foot L03.119 CKD (chronic kidney disease), stage III N18.30 Hyperkalemia E87.5 Diabetes mellitus, type 2 E11.9 S/P CABG x 4 Z95.1 Hyperlipidemia E78.5 S/P AVR Z95.2 S/P carotid endarterectomy Z98.890 DVT prophylaxis Z29.9
[2023-04-24] MEDS: METOPROLOL TARTRATE 25 MG TAB PO SCH ×2 (09:35→21:45)
[2023-04-24] MEDS ORDERED: Nursing to Pharmacy Communication SCH (10:00)
--- NOTE | 2023-04-24 10:12 | CT Scan Report ---
CT head/brain wo con CLINICAL HISTORY: 72 years-old Male with follow up ICH 01/2023. Follow-up study patient with acute i ntracranial hemorrhage TECHNIQUE: Multiple axial CT images of the head were obtained without contrast. A dose lowering tech nique was utilized adhering to the principles of ALARA. CT DOSE: 547.75 mGy.cm COMPARISON: 02/22/2023 FINDINGS: Acute/subacute right-sided subdural hematoma measures up to 11 mm transversely. The collection is pre dominantly isodense to adjacent parenchyma with a few areas of hyperdense acute blood. There is no mi dline shift, hydrocephalus or acute territorial infarct. There is near complete resolution of the pre viously described hemorrhagic foci involving the superior aspects of the cerebral convexities with re solution of the previously described subarachnoid hemorrhage. Trace persistent subarachnoid hemorrhag e within the right temporal lobe, image 8 series 2. Involutional changes with probable chronic microv ascular ischemic disease. No acute calvarial fracture. Mild mucosal thickening of the imaged paranasal sinuses. The mastoid ai r cells are clear. Resolving right posterior parietal scalp contusion. Prior bilateral lens repair. IMPRESSION: 1. Acute to subacute right subdural hematoma measuring up to 11 mm is new from the prior study. There is no midline shift. 2. Otherwise resolving subarachnoid hemorrhage and resolved intraparenchymal hematomas compared to th e 02/22/2023 study. 3. No hydrocephalus or acute calvarial fracture. ACT 112: Negative or not required by law. The above report was generated using voice recognition software. It may contain grammatical, syntax o r spelling errors. Electronically signed by: Elvin Olivares M.D. 04/24/2023 10:10 AM
[2023-04-24] MEDS: INSULIN ASPART PER UNIT CHARGE SC SCH ×3 (12:33→21:30)
[2023-04-24] MEDS: NICOTINE POLACRILEX 2 MG GUM MT PRN (17:18)
--- NOTE | 2023-04-24 19:25 | CT Scan Report ---
CT head/brain wo con CLINICAL HISTORY: SDH, 6h follow-up scan Technique: Contiguous axial CT images of the head were acquired from the base of the skull to the odette felisa without intravenous contrast administration. Images were viewed in brain, subdural and bone [facility]. Automated dose lowering techniques and/or adjustment according to patient size were utilized for this exam. Comparison: Comparison is made to CT head 04/24/2023 Findings: Approximately unchanged appearance of right-sided subdural hematoma, which appears subacute or acute on subacute. Maxillary and ethmoid sinus disease noted. The orbits appear normal. There are no acute fractures of the calvaria or scalp swelling. Impression: Acute to acute on subacute right subdural hematoma is unchanged from prior exam. No significant midli ne shift. Previously noted intraparenchymal and subarachnoid hemorrhage is not well seen, likely reso lved. ACT 112: Negative or not required by law. Electronically signed by: Norberto Alicea M.D. 04/24/2023 7:23 PM
[2023-04-25] MEDS: PIPERACILLIN/TAZOBACTAM 4.5 GM in DEXTROSE 5% MINI-B 100 ML IV SCH ×3 (03:00→21:09)
[2023-04-25] MEDS: NICOTINE POLACRILEX 2 MG GUM MT PRN ×3 (03:03→21:13)
[2023-04-25 06:55] LABS: Basophils # (auto) 0.08 K/uL (0.00-0.20); Basophils % (auto) 0.9 %; Eosinophils # (auto) 0.34 K/uL (0.00-0.50); Eosinophils % (auto) 3.8 %; Hematocrit (blood only) 33.6 % (42.0-52.0); Hemoglobin 11.5 g/dl (14.0-18.0); Immature Granulocytes # (auto) 0.02 K/uL (0.01-0.20); Immature Granulocytes % (auto) 0.2 %; Lymphocytes # (auto) 1.75 K/uL (1.20-3.40); Lymphocytes % (auto) 19.8 %; Mean Corpuscular Hemoglobin 32.3 pg (25.0-34.0); Mean Corpuscular Hgb Conc 34.2 g/dL (32.0-36.0); Mean Corpuscular Volume 94.4 fL (80.0-100.0); Mean Platelet Volume 10.1 fL (9.4-12.4); Monocytes # (auto) 0.75 K/uL (0.11-0.59); Monocytes % (auto) 8.5 %; Neutrophils # (auto) 5.91 K/uL (1.40-6.50); Neutrophils % (auto) 66.8 %; Platelet Count 161 K/uL (130-400); RDW Coefficient of Variation 12.7 % (11.5-14.5); RDW Standard Deviation 44.1 fL (36.4-46.3); Red Blood Count 3.56 M/uL (4.70-6.10); White Blood Count 8.85 K/ul (4.8-10.8)
[2023-04-25 07:18] LABS: BUN Creatinine Ratio 24.5 (10-20); Calcium 9.1 mg/dl (8.6-10.3); Creatinine Clr Calc Pharmacy 42.9 ml/min; Est GFR (African American) 48.4 ml/min; Est GFR (Non-African American) 41.8 ml/min; Magnesium 1.8 mg/dl (1.7-2.4); Potassium 4.5 mmol/L (3.5-5.1)
[2023-04-25] MEDS: LANTUS PER UNIT CHARGE SQ SCH ×2 (08:29→21:20)
[2023-04-25] MEDS: ACETAMINOPHEN 325 MG TAB PO SCH ×3 (08:29→21:14)
[2023-04-25] MEDS: METOPROLOL TARTRATE 25 MG TAB PO SCH ×2 (08:29→21:14)
[2023-04-25] MEDS: INSULIN ASPART PER UNIT CHARGE SC SCH ×4 (08:29→21:20)
--- NOTE | 2023-04-25 17:42 | Hospitalist Progress Note ---
Date of Service April 25, 2023 Assessment & Plan (1) Arterial occlusion: Plan: 72 YOM with vascular history with CABG x4, CEA 2021 and diabetic - Presents with almost 2 month history of right foot wounds and undergoing treatment for cellulitis - He states his foot has looked like this since January, wounds started after he went off plavix, and pain and redness worse over the past week - arterial duplex: "extensive atherosclerotic disease with the right popliteal, with occlusion of the distal right popliteal artery and the occlusion extended to the proximal right posterior tibial Artery, there is also occlusion at the right mid anterior tibial artery with faint distal reconstitution of the right DP. Also noted was 50-68% distal stenosis to the superficial femoral artery" - venous duplex neg for DVT - vascular surgeon Dr. Cronin consulted - discussed with him and his team several times throughout the day - RLE angiogram recommended, interventions anticipated, would need at least ASA if not DAPT following procedure Reviewed records from [facility] late January 2024. Was transferred there for admission with traumatic SAH, IPH, IVH after falling down stairs. Had been on ASA 81 mg at the time. This event was 8 weeks ago. Anticoagulation or antiplatelet can generally be resumed safely 4-8 weeks after ICH, depending on the risk:benefit. 10 weeks may be optimal if safe to defer for that long. -ordered repeat noncontrast head CT to assess resolution of ICH -showed 11 mm R SDH with some acute blood products visible - discussed with radiologist -consulted with neurosurgery at [facility], spoke with Dr. Alamo who reviewed our head CT film in comparison to their last film 03/05. SDH was present previously, may be same to slightly increased but acute blood products are new. Advised repeat head CT to confirm stability - reviewed, was unchanged, he will arrange follow up in neurosurgery clinic with head CT in 2 weeks and assess at that time if he can be cleared for vascular procedures with need for DAPT or anticoagulants -discussed with Dr. Cronin - occlusions are chronic so procedure will be rescheduled after neurosurgery follow up. Hoping that it will be safe to make interventions soon because he does have risk of recurrent infection, cellulitis or osteomyelitis with his nonhealing wounds. -discussed with the patient and his daughter at bedside 04/24 and with patient and daughter (by phone) 04/25 - plan to treat in hospital 1 more days with IV antibiotics to resolve current foot cellulitis then follow up as above 04/25 continues improving, ordered surgical shoe, continue same IV antibiotics and likely discharge in am on augmentin (2) Diabetic foot ulcer: Plan: Diabetic foot ulcer complicated by vascular disease - With surrounding foot erythema and edema- no previous comparison - Wound care consultation placed for assitance in managing - recommended paint daily with betadine and leave open to air - Zosyn and Daptomycin for coverage at this time (3) Cellulitis of foot: Plan: Examined 04/25 and erythema induration and pain improving - continue current antibiotics (4) CKD (chronic kidney disease), stage III: 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- improved to 1.46 after IV hydration, then back to 1.6 which is recent baseline (5) Hyperkalemia: Plan: Technically still within normal range of 3.5-4.5- has been elevated since 04/19/23 - His AJAY had been held and his Bactrim changed by PCP - This is likely related to ischemia of his foot as well and has been downtrending - No ECG changes and no acute need to intervene at this time - Normal 04/25 (6) Diabetes mellitus, type 2: Plan: Poorly controlled as outpatient records state normal BG >200s - Continue Lantus BID and Sliding Scale - reviewed BG 04/25 and labile but mostly at goal - no changes (7) S/P CABG x 4: Plan: Chronic stable- patient has no complaints of chest pain - ECG on chart with last comparison in 2016 which appears to be prior to his CABG - He reports no activity restitutions or pain/dyspnea when ambulating - Does not appear to be on any anti-platelet medication for his hx of CAD/CABG/CEA- likely to change following this episode of arterial occlusion (8) Hyperlipidemia: Plan: Chronic condition- defer to PCP - Will hold his cholesterol medication while on Dapto - Should likely increase to high intensity statin - unsure of tolerance issues (9) S/P AVR: Plan: chronic stable - without new symptoms to be reported - Bioprosthetic valve - not on intermodal customer service anticoagulation (10) S/P carotid endarterectomy: Plan: As above (11) DVT prophylaxis: Plan: SCDs, start SQ chemopx if remaining in hospital past tomorrow AM Admission and Anticipated Discharge Date Admission Date: April 23, 2023 Subjective Right foot pain and redness continues to improve. Physical Exam 2 Physical Exam: PHYSICAL EXAMINATION Last 24h vital signs reviewed, see documentation in flowsheet General: comfortable appearing, no distress, sitting up in chair HEENT: Normocephalic, atraumatic, pupils round and equal, sclerae anicteric, no conjunctival injection, moist mucus membranes Lungs: Normal respiratory effort. Heart: Abdomen: nondistended. Extremities: Warm, dry, no extremity edema. RLE with R 1st toe and R lateral foot wounds covered with dry black eschar, erythema and warmth on forefoot onto dorsum much improved receded to distal area of foot Neuro: Alert and oriented x 4, face symmetric speech intact maew x 4 Psych: normal affect and behavior Results & Data Results & Data Vital Signs (Past 12 Hours) Vital Signs Temp Pulse Resp BP Pulse Ox O2 Del Method 04/25/23 14:56 36.8 C 57 L 18 125/71 99 Room Air 04/25/23 08:04 36.7 C 67 18 137/73 97 Room Air Laboratory Results 04/25/23 06:23 04/25/23 06:23 PG Care Time/CCT Total # of Minutes Spent Total Time Spent with Patient: Total time spent is greater than 50% in coordination of care (as documented) at patient's floor/unit and/or counseling patient: Coding Level of Care Code 77868 SUB INP/OBS CARE 2/35MIN Diagnoses Arterial occlusion I70.90 Diabetic foot ulcer E11.621; L97.509 Cellulitis of foot L03.119 CKD (chronic kidney disease), stage III N18.30 Hyperkalemia E87.5 Diabetes mellitus, type 2 E11.9 S/P CABG x 4 Z95.1 Hyperlipidemia E78.5 S/P AVR Z95.2 S/P carotid endarterectomy Z98.890 DVT prophylaxis Z29.9
[2023-04-25] MEDS ORDERED: DAPTOmycin 300 MG in SYRINGE 0 ML IV SCH (23:00)
[2023-04-26] MEDS: PIPERACILLIN/TAZOBACTAM 4.5 GM in DEXTROSE 5% MINI-B 100 ML IV SCH ×2 (04:23→11:32)
[2023-04-26] MEDS: NICOTINE POLACRILEX 2 MG GUM MT PRN (08:02)
[2023-04-26] MEDS: ACETAMINOPHEN 325 MG TAB PO SCH (08:28)
[2023-04-26] MEDS: METOPROLOL TARTRATE 25 MG TAB PO SCH (08:29)
[2023-04-26] MEDS: LANTUS PER UNIT CHARGE SQ SCH (08:32)
[2023-04-26] MEDS: INSULIN ASPART PER UNIT CHARGE SC SCH ×2 (08:32→12:36)
--- NOTE | 2023-04-26 11:20 | Communication Note ---
Date of Service: April 26, [address] Almonte, she has been in contact with [facility] regarding pt's head CT. They would like to see pt in office in 2 weeks to reeval safety of pt beginning DAPT vs AC in light of his recent ICH. Dr Cronin will reeval pt in office after his neuro appt to discuss further options. Office will call pt/his daughter to schedule. Discussed with pt, he is in agreement to this plan.
--- NOTE | 2023-04-26 18:55 | Discharge Summary ---
Date of Service April 26, 2023 Admission HPI Per Admitting Provider 72 YOM with past medical history of: Intraventricular Hemorrhage 02/21 traumatic from falling down steps, DMII on insulin, CAD - 4v CABG 2018, Aortic Tissue Valve replacement 2018, CEA 2021, HTN, HLD, CKD. Patient presents to the EMD at the referral from his PCP secondary to concerns of failure of outpatient therapy secondary to right foot ulcerations. He has a right foot lateral wound covered with eschar and right great toe wound covered with eschar. Surrounding erythema from foot up to just above the ankle. Patient states that this occurred when he fell down the steps in 02/21 and has not healed. He is being treated at home by his with "some cream and ointment". Appears he was on Bactrim as outpatient in March- was referred to EMD during that time, however appears as patient did not take recommendations. He was again seen by PCP on 04/19/23 for concern of hyperkalemia as well as continued erythema to the right foot. He was changed from Bactrim to Augmentin for his foot. Patient reports to the EMD today 04/24/23 for evaluation of his right leg. There was some concern for decrease pulses and swelling in the right foot and leg. He underwent vascular arterial and venous duplex studies. The Arterial Duplex was notable for extensive atherosclerotic disease with the right popliteal, with occlusion of the distal right popliteal artery and the occlusion extended to the proximal right posterior tibial Artery, there is also occlusion at the right mid anterior tibial artery with faint distal reconstitution of the right DP. Also noted was 50-68% distal stenosis to the superficial femoral artery. Vascular Surgery Dr. Cronin was reportedly contacted by the LUCINA Quinonez in the EMD upon findings with recommendations to admit, NPO, antibiotics and he will evaluate him in the morning. Was also reported to not anticoagulate secondary to IVH he suffered in 02/21. Patient will be admitted to the [facility]. IVF overnight for his renal indices. CODE: DNR/DNI Principal Diagnosis Right foot cellulitis, PAD of right foot with chronic arterial occlusions and foot wounds, subdural hematoma Discharge Exam PHYSICAL EXAMINATION Last 24h vital signs reviewed, see documentation in flowsheet General: comfortable appearing, no distress, sitting up in chair HEENT: Normocephalic, atraumatic, pupils round and equal, sclerae anicteric, no conjunctival injection, moist mucus membranes Lungs: Normal respiratory effort. Heart: Abdomen: nondistended. Extremities: Warm, dry, no extremity edema. RLE with R 1st toe and R lateral foot wounds covered with dry black eschar unchanged, erythema and warmth on forefoot onto dorsum resolved foot remains warm and mildly jake/pink Neuro: Alert and oriented x 4, face symmetric speech intact maew x 4 Psych: normal affect and behavior Discharge Data Allergies Allergy/AdvReac Type Severity Reaction Status Date / Time dulaglutide [[facility] AdvReac Mild Fatigued Verified 04/24/23 15:28 metformin AdvReac Mild Diarrhea Verified 04/24/23 15:28 Consultations 04/23/23 22:58 ED Decision to Admit Stat 04/24/23 01:59 Consult Vascular Surgery Routine Procedures Performed Operation Date: 04/26/23 13:10 <No data on this case meets the specified criteria> Ordered Studies 04/23/23 18:43 US arterial duplex LE RT Stat US venous doppler LE RT Stat 04/24/23 08:47 CT head/brain wo con Routine 04/24/23 14:27 CT head/brain wo con Routine Duplex Scan Lower Extremity Artery 04/23/23 18:43 Exam(s): US ARTERIAL RIGHT LOWER EXTREMITY EXAM: US Duplex Right Lower Extremity Arteries CLINICAL HISTORY: Poor healing, necrosis, infection. TECHNIQUE: Real-time duplex ultrasound scan of the right lower extremity arteries integrating B-mode two-dimensional vascular structure, Doppler spectral analysis and color flow Doppler imaging. COMPARISON: No relevant prior studies available. FINDINGS: Right common femoral artery: Atherosclerotic calcification noted involving the right common femoral artery. Multiphasic waveforms are identified with peak systolic velocities between 177 and 206 cm/s. Right deep femoral: Atherosclerotic calcification with mild narrowing of the proximal right profunda femoral artery with multiphasic waveforms in a peak systolic velocity of 166 cm/s. Right superficial femoral artery: Atherosclerotic calcification involving the right superficial femoral artery with biphasic to monophasic waveforms distally with peak systolic velocities between 175 cm/s and 56 cm/s at the mid superficial femoral artery. There is prominent atherosclerotic disease involving the distal right superficial femoral artery with focal elevated waveforms and spectral broadening with peak systolic velocity of 107 cm/s and monophasic waveforms. Beyond this point, the peak systolic velocity of the distal femoral artery is 51 cm/s with monophasic waveforms. Right popliteal artery: The right popliteal artery demonstrates peak systolic velocity of 133 cm/s with spectral broadening and monophasic waveforms. Atherosclerotic disease noted. The distal popliteal artery is occluded. Right calf/foot arteries: The proximal right posterior tibial artery is occluded. There is reconstitution of the distal right posterior tibial artery is monophasic waveforms in a peak systolic velocity of 32 cm/s. The peroneal artery is patent with monophasic waveforms in a peak systolic velocity between 18 and 19 cm/s. The anterior tibial artery is patent proximally with monophasic waveforms in a peak systolic velocity of 48 cm/s. The mid anterior tibial artery is occluded. There is distal reconstitution with the dorsalis pedis artery demonstrating a peak stalk velocity of only 14 cm/s an monophasic waveforms. Soft tissues: Unremarkable. IMPRESSION: 1. Extensive at this chronic calcification of the right lower extremity. The right superficial femoral artery is patent with biphasic waveforms proximally. There is prominent atherosclerotic disease involving the distal right superficial femoral artery with focal elevated waveforms and spectral broadening, consistent with a hemodynamic stenosis of 50-69%. Distal to this stenosis, there is monophasic waveforms. 2. Extensive atherosclerotic disease involving the right popliteal artery. The distal right popliteal artery is occluded. The occlusion extends to the proximal right posterior tibial artery. 3. The right mid anterior tibial artery is occluded. There is faint distal reconstitution of the right dorsalis pedis artery with monophasic waveforms. The right peroneal artery demonstrates monophasic waveforms. Electronically signed by: Siddhartha Decker MD 04/23/23 21:55 PM Foot X-Ray 04/23/23 18:43 XR foot RT min 3V routine HISTORY: 72 years-old Male Infection acute right foot pain COMPARISON: 04/19/2023 TECHNIQUE: 3 views of the right foot FINDINGS: Prior partial amputation of the first distal phalanx. 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 [id number] osteoarthritis of the interphalangeal joints. No acute fracture, dislocation or new osseous erosions. Arterial calcifications. Degenerative spurring of the calcaneus. Mild diffuse soft tissue prominence. IMPRESSION: 1. No acute osseous abnormality. 2. Chronic findings as above. ACT 112: Negative or not required by law. The above report was generated using voice recognition software. It may contain grammatical, syntax or spelling errors. Electronically signed by: Elvin Olivares M.D. 04/24/2023 7:25 AM Venous Doppler Study 04/23/23 18:43 Exam(s): US VENOUS RIGHT LOWER EXTREMITY EXAM: US Duplex Right Lower Extremity Veins CLINICAL HISTORY: Redness, swelling right foot, Eval DVT. TECHNIQUE: Real-time duplex ultrasound scan of the right lower extremity veins integrating B-mode two-dimensional vascular structure, Doppler spectral analysis, color flow Doppler imaging and compression. COMPARISON: No relevant prior studies available. FINDINGS: Deep veins: No DVT in the visualized right common femoral, femoral, proximal deep femoral or popliteal veins. The veins demonstrate normal color flow, are normally compressible, with normal phasic flow and/or augmentation response. The interrogated calf veins are patent. Superficial veins: Incidental hyperechoic calcific densities in the right short saphenous vein involving the right popliteal fossa. The saphenofemoral junction is patent. Soft tissues: No acute findings. No popliteal cyst. IMPRESSION: No evidence for deep vein thrombosis involving the right lower extremity. Electronically signed by: Siddhartha Decker MD 04/23/23 21:[address] 04/24/23 08:47 CT head/brain wo con CLINICAL HISTORY: 72 years-old Male with follow up ICH 01/2023. Follow-up study patient with acute intracranial hemorrhage TECHNIQUE: Multiple axial CT images of the head were obtained without contrast. A dose lowering technique was utilized adhering to the principles of ALARA. CT DOSE: 547.75 mGy.cm COMPARISON: 02/22/2023 FINDINGS: Acute/subacute right-sided subdural hematoma measures up to 11 mm transversely. The collection is predominantly isodense to adjacent parenchyma with a few areas of hyperdense acute blood. There is no midline shift, hydrocephalus or acute territorial infarct. There is near complete resolution of the previously described hemorrhagic foci involving the superior aspects of the cerebral convexities with resolution of the previously described subarachnoid hemorrhage. Trace persistent subarachnoid hemorrhage within the right temporal lobe, image 8 series 2. Involutional changes with probable chronic microvascular ischemic disease. No acute calvarial fracture. Mild mucosal thickening of the imaged paranasal sinuses. The mastoid air cells are clear. Resolving right posterior parietal scalp contusion. Prior bilateral lens repair. IMPRESSION: 1. Acute to subacute right subdural hematoma measuring up to 11 mm is new from the prior study. There is no midline shift. 2. Otherwise resolving subarachnoid hemorrhage and resolved intraparenchymal hematomas compared to the 02/22/2023 study. 3. No hydrocephalus or acute calvarial fracture. ACT 112: Negative or not required by law. The above report was generated using voice recognition software. It may contain grammatical, syntax or spelling errors. Electronically signed by: Elvin Olivares M.D. 04/24/2023 10:[address] 04/24/23 14:27 CT head/brain wo con CLINICAL HISTORY: SDH, 6h follow-up scan Technique: Contiguous axial CT images of the head were acquired from the base of the skull to the vertex without intravenous contrast administration. Images were viewed in brain, subdural and bone windows. Automated dose lowering techniques and/or adjustment according to patient size were utilized for this exam. Comparison: Comparison is made to CT head 04/24/2023 Findings: Approximately unchanged appearance of right-sided subdural hematoma, which appears subacute or acute on subacute. Maxillary and ethmoid sinus disease noted. The orbits appear normal. There are no acute fractures of the calvaria or scalp swelling. Impression: Acute to acute on subacute right subdural hematoma is unchanged from prior exam. No significant midline shift. Previously noted intraparenchymal and subarachnoid hemorrhage is not well seen, likely resolved. ACT 112: Negative or not required by law. Electronically signed by: Norberto Alicea M.D. 04/24/2023 7:23 PM 04/25/23 06:23 04/25/23 06:23 Hospital Course (1) Arterial occlusion: 72 YOM with vascular history with CABG x4, CEA 2021 and diabetic - Presents with almost 2 month history of right foot wounds and undergoing treatment for cellulitis on and off antibiotics po - He states his foot has looked like this since January, wounds started after he went off plavix because of ICH, and pain and redness worse over the past week - arterial duplex: "extensive atherosclerotic disease with the right popliteal, with occlusion of the distal right popliteal artery and the occlusion extended to the proximal right posterior tibial Artery, there is also occlusion at the right mid anterior tibial artery with faint distal reconstitution of the right DP. Also noted was 50-68% distal stenosis to the superficial femoral artery" - venous duplex neg for DVT - vascular surgeon Dr. Cronin consulted - RLE angiogram recommended, interventions anticipated, would need at least ASA if not DAPT following procedure Reviewed records from [facility] late January 2024. Was transferred there for admission with traumatic SAH, IPH, IVH after falling down stairs. Had been on ASA 81 mg at the time. This event was 8 weeks ago. Anticoagulation or antiplatelet can generally be resumed safely 4-8 weeks after ICH, depending on the risk:benefit. 10 weeks may be optimal if safe to defer for that long. -ordered repeat noncontrast head CT to assess resolution of ICH -showed 11 mm R SDH with some acute blood products visible - discussed with radiologist -consulted with neurosurgery at [facility], spoke with Dr. Alamo who reviewed our head CT film in comparison to their last film 03/05. SDH was present previously, may be same to slightly increased but acute blood products are new. Advised repeat head CT to confirm stability - reviewed, was unchanged, he will arrange follow up in neurosurgery clinic with head CT in 2 weeks and assess at that time if he can be cleared for vascular procedures with need for DAPT or anticoagulants -discussed with Dr. Cronin - occlusions are chronic so procedure will be rescheduled after neurosurgery follow up. Hoping that it will be safe to make interventions soon because he does have risk of recurrent infection, cellulitis or osteomyelitis with his nonhealing wounds. -cellulitis of R foot resolved on IV antibiotics as of discharge 04/26, prescribed one additional week of augmentin -wound nurse consulted recommended painting wounds with betadine and leaving open to air -surgical shoe provided and counseled not to wear any shoe that puts pressure on his wounds or forefoot -discussed with the patient and his daughter at bedside 04/24 and with patient and daughter (by phone) 04/25, patient and his 04/26 -his confirmed that he has repeat head CT scheduled by [facility] neurosurgery for about 2 weeks from now in [place] and follow up appointment in [place] later in May (2) Diabetic foot ulcer: Diabetic foot ulcers complicated by vascular disease - Wound care consultation placed for assitance in managing - recommended paint daily with betadine and leave open to air - see above (3) Cellulitis of foot: -see above (4) CKD (chronic kidney disease), stage III: [employer] 1.6- improved to 1.46 after IV hydration, then back to 1.6 which is recent baseline (5) Hyperkalemia: Technically still within normal range of 3.5-4.5- has been elevated since 04/19/23 - His AJAY had been stopped and his Bactrim changed by PCP - This is likely related to ischemia of his foot as well and has been downtrending - No ECG changes and no acute need to intervene at this time - Normal 04/25 (6) Diabetes mellitus, type 2: Poorly controlled as outpatient in the past. Metformin caused too many GI side effects so was not taking. Reports for past few weeks BG has been between 120s and 200 on daily glargine, glipizide and farxiga -resume this and follow up with primary care (7) S/P CABG x 4: Chronic stable- patient has no complaints of chest pain - ECG on chart with last comparison in 2017 which appears to be prior to his CABG - He reports no activity restitutions or pain/dyspnea when ambulating - No longer on plavix because of ICH (8) Hyperlipidemia: Chronic condition- defer to PCP - continue rosuvastatin (9) S/P AVR: (10) S/P carotid endarterectomy: As above Total Time Total Time Spent Total Time Spent (In Minutes): I personally spent: 40 minutes today on clinical care activities and coordinating care for discharge including: reviewing chart notes and vital signs reviewing labs examining and counseling the patient counseling the patient's family writing orders documentation Discharge Plan Discharge Items Patient Disposition: Home - Self-Care Reason For Visit: FOOT INFECTION Discharge Diagnosis: right foot cellulitis, peripheral artery disease right lower extremity, subdural hematoma Activity: Per Instructions section Non-emergency contact: Primary Care Provider and Surgeon Call non-emergency contact if: you have any medication questions, your symptoms worsen, you have a fever, your wound has increased redness, your wound has increased drainage and your wound pain has increased Follow-up/Referrals: Ag Cuellar DO [Primary Care Provider] - 05/02/23 11:30 am Velasquez Cronin MD [Physician] - Diet: Carb Consistent or DM2 Addtl Attending Provider Instructions: You were treated for skin infection of right foot -this has mostly resolved, take amoxicillin-clavulanate for another week -keep pressure off your foot wounds, wear surgical shoe or "diabetic" type shoe with large toe box -pain the wounds with betadine daily and leave open to air Most of the areas of brain bleeding have resolved, however there was some recent/new blood in the subdural hematoma on the right side of your head. The hematoma itself was more or less the same size or slightly increased from March. I reviewed these images with the neurosurgeon at [facility]. Repeat scan was stable. Follow up with [facility] neurosurgery as scheduled for repeat head CT and office visit Follow up with Dr. Cronin for vascular procedures to restore blood flow, following your appointment with [facility] Neurosurgery -hopefully they will be able to clear you for medications needed to treat your vascular disease soon (medicines like aspirin, plavix, or blood thinners for example) I strongly advise you quit tobacco. Tobacco products will worsen your vascular (artery) disease and cause strokes and heart attacks. Nicotine replacement is much safer than tobacco. -seek immediate medical attention if you develop right foot/leg pain, cold/blue foot or leg, worsening redness drainage or pain from wounds -seek immediate medical attention (call 911) if you have change in mental status, lethargy, stroke-like symptoms (trouble speaking/understanding, trouble walking, trouble moving arm/leg) or severe headache Pending Studies at Discharge: No Stand-Alone Forms: My [facility], Smoking Cessation Medications and DC Order Prescriptions: Continued (DME) blood sugar diagnostic Strip See Rx Instructions .ROUTE .MEDSUPPLY Qty: 100 11RF Rx Instructions: Test blood sugar once or twice daily as directed rosuvastatin 10 mg tablet 10 mg PO HS Qty: 90 3RF metoprolol tartrate 25 mg tablet 25 mg PO BID Qty: 180 3RF (DME) OneTouch Ultra Test Strip See Rx Instructions .Route Qty: 200 3RF Rx Instructions: Test twice daily Farxiga 10 mg tablet 10 mg PO DAILY Qty: 90 2RF insulin glargine [Lantus Solostar U-100 Insulin] 100 unit/mL (3 mL) insulin pen 11 - 16 unit subcut BID Qty: 30 3RF Rx Instructions: 12 units BID glipizide 10 mg tablet 5 mg PO DAILY Qty: 180 3RF hydrochlorothiazide 12.5 mg tablet 12.5 mg PO DAILY Qty: 90 3RF (DME) blood-glucose meter [OneTouch Ultra2 Meter] Misc See Rx Instructions .Route Qty: 1 0RF Rx Instructions: ONE TOUCH GLUCOSE METER; DX: E11.9 acetaminophen 325 mg tablet 975 mg PO TID (DME) pen needle, diabetic [Comfort EZ Pen [place]] 32 gauge x 1/4" needle See Rx Instructions .Route Qty: 200 0RF Rx Instructions: INJECT BSG Twice DAILY; DX CODE- E11.9 amoxicillin 500 mg tablet 2,000 mg PO DIRECTED PRN (Reason: PRIOR TO DENTAL PROCEDURES) Rx Instructions: Take 4 tablets 30-60 minutes prior to dental procedure. amoxicillin-pot clavulanate 875-125 mg tablet 1 tab PO BID Qty: 14 0RF Discontinued lisinopril 20 mg tablet 20 mg PO BID Qty: 180 3RF doxycycline hyclate 100 mg capsule 100 mg PO BID Qty: 20 0RF Rx Instructions: STARTED 04/19/23 FOR 10 DAYS Discharge Orders: Discharge Order (Routine); Ordered 04/26/23 Ordered By: Lorri Almonte Admission Data Admit Date/Time: 04/23/23 23:51 Attending Provider: Lorri Almonte Admit Provider: Isaac Mitchell Primary Care Provider: Ag Cuellar Other Providers: Cliff Merritt; Velasquez Cronin Other Interventions: Discharge Summary Assessment (RN) Last Done: 04/26/23 11:39 Coding Level of Care Code 80621 INP/OBS DISCH >30 MIN Diagnoses Arterial occlusion I70.90 Diabetic foot ulcer E11.621; L97.509 Cellulitis of foot L03.119 CKD (chronic kidney disease), stage III N18.30 Hyperkalemia E87.5 Diabetes mellitus, type 2 E11.9 S/P CABG x 4 Z95.1 Hyperlipidemia E78.5 S/P AVR Z95.2 S/P carotid endarterectomy Z98.890
== END 2023-04-26 13:42 | disposition home or self-care (01) | DRG 300 ==
LOC: ED 18:28 → 3N 23:51 → SUATTDRO 23:51 → 3N 04-24 01:02